=== PATIENT | female | born 2000 | race Caucasian/White ===

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

== ENCOUNTER → 2019-09-08 11:29 | Outpatient (CLI) | payer MEDICAID, SELFPAY ==
[2019-09-08 14:06] LABS: hCG Titer Quant., Serum < 1 mIU/mL (1-3)
[2019-09-08 14:18] LABS: Progesterone Level 0.74 ng/mL (See Comment)
== END ==
PROVIDERS: Referring Provider Obstetrics & Gynecology; Visit Provider Obstetrics & Gynecology
DX: Z30.014 Encounter for initial prescription of intrauterine contraceptive device (principal)
CPT/HCPCS: 36415; 84144; 84702

== ENCOUNTER → 2019-09-10 15:27 | Outpatient (CLI) | payer MEDICAID, SELFPAY ==
[2019-09-10 20:22] LABS: Chlamydia Trachomatis by PCR Negative (Negative); Neisserai gonorrhoeae by PCR Negative (Negative); Probe Check PASS; Sample Adequacy Control PASS; Specimen Processing Control PASS
== END ==
PROVIDERS: Visit Provider Advanced Practice Midwife
DX: Z11.3 Encounter for screening for infections with a predominantly sexual mode of transmission (principal)
CPT/HCPCS: 87491; 87591

== ENCOUNTER → 2020-02-15 16:02 | Outpatient (CLI) | payer MEDICAID, SELFPAY ==
[2020-02-15 17:12] LABS: Absolute Lymphocyte Count 1.44 X10^3/uL (0.83-4.51); Absolute Neutrophil Count 6.2 X10^3/uL (2.0-7.7); Basophil# 0.03 X10^3/uL; Basophil% 0.4 % (0-1); Eosinophil# 0.28 X10^3/uL; Eosinophils% 3.3 % (0-5); Hematocrit 38.9 % (37-47); Lymphocyte # 1.44 X10^3/ul (4.0); Lymphocyte % 17.1 % (19-41); Mean Corp Hgb Conc 33.4 g/dL (32-36); Mean Corpuscular Hgb 30.2 pg (27.0-32.0); Mean Corpuscular Volume 90.3 fL (81-99); Monocyte# 0.46 X10^3/uL; Monocyte% 5.5 % (0-10); NRBC Flagged by Analyzer 0 % (0-5); Neutrophil % 73.3 % (47-70); Platelet Count 211 K/mm3 (150-450); RBC Distribution Width CV 12.8 % (11.6-14.6); RBC Distribution Width SD 41.8 fl (35.1-43.9); Red Blood Count 4.31 M/mm3 (4.2-5.4); White Blood Count 8.4 K/mm3 (4.4-11.0)
[2020-02-15 17:14] LABS: Color, Urine Yellow (Yellow); Glucose, Dipstick Normal (Normal); Ketone-Dipstick 15 mg/dl (Negative); Leukocyte Esterase-Dipstick 500 /ul (Negative); Nitrite-Dipstick Negative (Negative); Occult Blood-Urine Negative /ul (Negative); Protein-Dipstick 30 mg/dl (Negative); Urine Bilirubin Dipstick Negative (Negative); Urine Clarity Sl. Cloudy (Clear); Urine Urobilinogen 1 mg/dl (Normal); Urine pH 6.5 (5.0 - 8.0)
[2020-02-15 17:36] LABS: Amphetamine Urine VISTA NEGATIVE (<1000 ng/mL); Barbiturate Urine VISTA NEGATIVE (< 200 ng/mL); Benzodiazepine Urine VISTA NEGATIVE (< 200 ng/mL); Cocaine Urine VISTA NEGATIVE (< 300 ng/mL); Ecstacy Urine VISTA NEGATIVE (< 500 ng/mL); Methadone Urine VISTA NEGATIVE (< 300 ng/mL); PCP Urine VISTA NEGATIVE (< 25 ng/mL); THC Urine VISTA NEGATIVE (< 50 ng/mL); Vista UDS pH Range 7
[2020-02-15 18:50] LABS: Thyroid Stim Hormone (TSH) 2.43 uIU/mL (0.358-3.74)
[2020-02-15 19:22] LABS: Chlamydia Trachomatis by PCR Negative (Negative); Neisserai gonorrhoeae by PCR Negative (Negative); Probe Check PASS; Sample Adequacy Control PASS; Specimen Processing Control PASS
[2020-02-16 10:34] LABS: HIV - WCH Non-Reactive (Nonreactive); Hepatitis B Surface Antigen Non-Reactive (Nonreactive); Hepatitis C Antibody Non-Reactive (Nonreactive); Rubella IgG 75.4 IU/mL
[2020-02-16 21:57] LABS: Prenatal RPR NONREACTIVE (NONREACTIVE)
== END ==
PROVIDERS: Visit Provider Obstetrics & Gynecology
DX: Z34.82 Encounter for supervision of other normal pregnancy, second trimester (principal)
CPT/HCPCS: 36415; 80307; 81002; 84443; 85025; 86703; 86762; 86803; 87340; 87491; 87591

== ENCOUNTER → 2020-04-12 10:24 | Outpatient (CLI) | payer MEDICAID, SELFPAY ==
[2020-04-12 11:08] LABS: Hematocrit 36.6 % (37-47); Hemoglobin 12.1 g/dL (12.0-15.0); Mean Corp Hgb Conc 33.1 g/dL (32-36); Mean Corpuscular Hgb 30.3 pg (27.0-32.0); Mean Corpuscular Volume 91.7 fL (81-99); Mean Platelet Vol. 10.3 fl (6.2-12.0); Platelet Count 197 K/mm3 (150-450); RBC Distribution Width CV 12.8 % (11.6-14.6); RBC Distribution Width SD 42.2 fl (35.1-43.9); Red Blood Count 3.99 M/mm3 (4.2-5.4); White Blood Count 8.8 K/mm3 (4.4-11.0)
[2020-04-12 11:20] LABS: Glucose Challenge Gest 1H 50g 111 mg/dL (70-140)
== END ==
PROVIDERS: Visit Provider Obstetrics & Gynecology
DX: Z34.82 Encounter for supervision of other normal pregnancy, second trimester (principal)
CPT/HCPCS: 36415; 82950; 85027

== ENCOUNTER → 2020-06-14 | Outpatient (CLI) | payer MEDICAID, SELFPAY | END | disposition home or self-care (01) | LOC: LABSPEC 16:36 | PROVIDERS: Visit Provider Obstetrics & Gynecology | DX: Z36.85 Encounter for antenatal screening for Streptococcus B (principal) | CPT/HCPCS: 87081 ==

== ENCOUNTER 2020-07-05 18:25 | Inpatient (IN) | payer MEDICAID, SELFPAY ==
[2020-07-05 19:08] VITALS: BMI 36.3
[2020-07-05 19:27] VITALS: BP 124/66; PULSE 99
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
[2020-07-05] MEDS: Lactated Ringers 1,000 ML 50 ML IV (20:00)
[2020-07-05 20:24] VITALS: BP 109/62; PULSE 90; TEMP 36.8
[2020-07-05 20:28] LABS: Absolute Lymphocyte Count 1.64 X10^3/uL (0.83-4.51); Absolute Neutrophil Count 7.2 X10^3/uL (2.0-7.7); Basophil# 0.02 X10^3/uL; Basophil% 0.2 % (0-1); Eosinophil# 0.16 X10^3/uL; Eosinophils% 1.6 % (0-5); Hematocrit 37.4 % (37-47); Hemoglobin 12.2 g/dL (12.0-15.0); Lymphocyte # 1.64 X10^3/ul (4.0); Lymphocyte % 16.7 % (19-41); Mean Corp Hgb Conc 32.6 g/dL (32-36); Mean Corpuscular Hgb 29.3 pg (27.0-32.0); Mean Corpuscular Volume 89.7 fL (81-99); Monocyte# 0.72 X10^3/uL; Monocyte% 7.3 % (0-10); NRBC Flagged by Analyzer 0 % (0-5); Neutrophil # 7.22 X10^3/uL (2.7-7.7); Neutrophil % 73.7 % (47-70); Platelet Count 187 K/mm3 (150-450); RBC Distribution Width CV 13.8 % (11.6-14.6); RBC Distribution Width SD 45.1 fl (35.1-43.9); Red Blood Count 4.17 M/mm3 (4.2-5.4); White Blood Count 9.8 K/mm3 (4.4-11.0)
[2020-07-05] MEDS: miSOPROStol 25 MCG TABLET PO (20:30)
[2020-07-05] MEDS: Lactated Ringers 500 ML 999 ML IV (23:53)
[2020-07-06] VITALS (74 sets, daily range): BP systolic 80–125; BP diastolic 49–76; PULSE 64–102; RESP 14–16; TEMP 36.5–37.3; O2SAT 95–98
[2020-07-06] MEDS: fentaNYL-bupivacaine (epidural) 100 ML BAG EPIDURAL ×2 (01:04→06:19)
[2020-07-06] MEDS: Lactated Ringers 1,000 ML 200 ML IV (04:34)
[2020-07-06] MEDS: Oxytocin 30 units/NS 500 ml 30 UNITS/500 ML IV.SOLN 334 UNITS IV (09:09)
--- NOTE | 2020-07-06 09:29 | PCM.OPRPT ---
Problem List (1) (spontaneous vaginal delivery) Status: Acute Vaginal Delivery Maternal Presentation: Elective Induction Method of Induction: Cytotec Amniotic Membrane Rupture Type: Spontaneous Rupture of Membrane time: 07/06/20 0848h Amniotic Fluid Description: Lightly stained meconium Final SALLIE: 07/10/20 Gestational age: 39 Weeks and 3 Days doctor who attended delivery (if requested by OB): Nadine Brewer Date of Procedure: 07/06/20 Pre-Operative Diagnosis: 39w3d gestation Post-Operative Diagnosis: 39w3d gestation Surgery/ Procedure Performed: Spontaneous Vaginal Delivery Anesthesiologist: Jaylen Barton Type of Anesthesia: Epidural Description of Procedure: Patient was FD/+3 on my arrival. She pushed to deliver a vigorous male infant over and intact perineum. Infant was placed on the maternal abdomen and further attended by nursery personnel. The cord was doubly clamped, then it was cut by the adoptive mother. The was passed to the adoptive mother for skin to skin. The placenta delivered spontaneously and appeared intact on inspection. Fundus was firm at umbilicus. Sponge counts correct x 2. Presentation: Vertex Placental Delivery Description: Spontaneous Placenta Disposition: [facility] Cord Vessel Description: 3 Vessels Nuchal Cord Compression: Without compression Cord Entanglement: None Drain: Cleaning to straight drain Estimated Blood Loss: 150 ml Infant A gender: Male (1 minute): 8 (5 minute): 9 Episiotomy Description: None Laceration: None Medications given after delivery: IV Pitocin Complications: None
--- NOTE | 2020-07-06 14:00 | CASEMGMT ---
Social Work Labor and Delivery Unit Reason for intervention: Adoption planning for Summary: This sba underwriter is aware patient/mother of baby (MOB) plan for option of . This sba underwriter met with MOB on 06/30/2020 to review the adoptive checklist. Informed at that time MOB is working with [employer] adoption agency. Also present for part of the meeting with MOB was the perspective adoptive mother. MOB and the adoptive mother reports to know each other's first and last names and are open to information being known. Noted that infant was delivered today. This sba underwriter received message from Kae Cruz at [employer] agency ([phone]) touching base and discussing timeframe of when the permanent surrender paperwork can be signed. The attorney law clerk and adoption agency staff are unavailable on Friday, so the soonest surrender can be done is on 07/10/2020. Spoke with nursing staff, and the MOB boyfriend is present as support person. The adoptive parents are also present on the unit and have their own room to take care of the baby, which has been the MOB wish for her adoption plan. Plan: Plan to meet with MOB on 07/07/2020 further assessment and confirmation of desire to follow through with adoption planning. -DARLENE Glasgow, SVETLANA *Information documented in this note generated via [facility] system*
[2020-07-06] MEDS: buPROPion (XL) 150 MG TABLET.XL PO (15:58)
[2020-07-06] MEDS: Prenatal Vits Tablet 1 TABLET PO (15:58)
[2020-07-06] MEDS: Ibuprofen 600 MG Tablet PO (19:54)
[2020-07-07 03:54] VITALS: BP 125/66; PULSE 83; RESP 16; TEMP 36.6
[2020-07-07 08:30] VITALS: BP 121/69; PULSE 93; RESP 18; TEMP 36.8
--- NOTE | 2020-07-07 08:30 | PCM.PN.OB ---
Patient Problems: Active and Suspected Problems (spontaneous vaginal delivery) (Acute) Subjective: No issues overnight. Reports she finally slept well. She is sore, but pain is minimal. OOB, ambulating and voiding without difficulty. Denies heavy lochia. Objective: AVSS - Physical Exam Vitals/I&O's: Vital Signs Temp Pulse Resp BP Pulse Ox 97.8 F 83 16 125/66 H 98 07/07/20 03:54 07/07/20 03:54 07/07/20 03:54 07/07/20 03:54 07/06/20 15:54 Oxygen Delivery Method Room Air Weight: 78.925 kg Body Mass Index (BMI) 36.3 Intake and Output for Last 24 Hours 07/05/20 07/06/20 07/07/20 23:59 23:59 23:59 Intake Total 194.17 / 194.17 2748.45 / 2748.45 Output Total 1450 / 1450 Balance 194.17 / 194.17 1298.45 / 1298.45 General: Alert, Oriented x3, Cooperative, No apparent distress HEENT: Atraumatic, Normocephalic Lungs: Clear to auscultation, Normal air movement Cardiovascular: Regular rate, Regular Rhythm, Normal S1, Normal S2 Abdomen: Soft, Non Tender, Non-Distended, - - Fundus firm and nontender Extremities: No edema, No Calf Tenderness Neurological: Neuro grossly intact Psych/Mental Status: Normal Affect, Appropriate, Alert and oriented to time, place, person, mood and affect Microbiology Past 72 Hours 07/05/20 20:10 Mucosa - Nose - Final Current Medications Acetaminophen (Acetaminophen 325 Mg Tablet) 325 - 650 mg PO Q4H PRN PRN PRN Reason: FEVER ABOVE 100.4F. Acetaminophen (Acetaminophen 500 Mg Tablet) 1,000 mg PO Q8H PRN PRN PRN Reason: Pain Score 1-3 Albuterol Sulfate (Albuterol 2.5 Mg/3 Ml Vial.Neb.) 2.5 mg INHALATION Q4H PRN PRN Reason: SOB/WHEEZING Albuterol Sulfate (Albuterol 2.5 Mg/3 Ml Vial.Neb.) 2.5 mg INHALATION Q6HWA.RT MARQUEZ Bisacodyl (Bisacodyl 10 Mg Suppository) 10 mg RECTAL UD PRN PRN Reason: If no BM Budesonide (Budesonide Respules 0.5 Mg/2 Ml Ampul.Neb.) 0.5 mg INHALATION Q12H.RT MARQUEZ Bupropion HCl (Bupropion (Xl) 150 Mg Tablet.Xl) 150 mg PO DAILY [facility] Last Admin: 07/06/20 15:58 Dose: 150 mg Documented by: Dibucaine (Dibucaine 30 Gm Tube) 1 applic TOPICAL TID PRN PRN; Protocol PRN Reason: Discomfort Hydrocortisone (Hydrocortisone 2.5% Crm) 1 applic TOPICAL TID PRN PRN; Protocol PRN Reason: Discomfort Ibuprofen (Ibuprofen 600 Mg Tablet) 600 mg PO Q6H PRN PRN PRN Reason: Pain Score 1-3 Last Admin: 07/06/20 19:54 Dose: 600 mg Documented by: Methylergonovine Maleate (Methylergonovine 0.2 Mg/Ml Ampul) 0.2 mg IM X1 PRN PRN Reason: Excess bleeding/uterine atony Ondansetron HCl (Ondansetron 4 Mg/2 Ml Vial) 4 mg IV Q4H PRN PRN PRN Reason: NAUSEA Multivit/Folic Acid/Iron ( Vits Tablet) 1 tablet PO DAILY@1200 MARQUEZ Last Admin: 07/06/20 15:58 Dose: 1 tablet Documented by: Senna/Docusate Sodium (Senna/Docusate Sodium 1 Tablet) 1 - 2 tablet PO DAILY PRN PRN PRN Reason: Constipation Simethicone (Simethicone 80 Mg Tablet) 80 mg PO PCHS PRN PRN Reason: Indigestion/Stomach pain Sodium Chloride (0.9% Saline Lock 10 Ml Syringe) 5 - 15 ml IV UD PRN PRN Reason: SALINE FLUSH Medical Necessity - Tobacco Use Smoking Status: Never smoker Assessment/Plan All Active Problems 40 weeks gestation of (Acute) (spontaneous vaginal delivery) (Acute) Encounter for insertion of intrauterine contraceptive device (Acute) 19yo PPD#1 s/p doing well. -Rh positive -Routine care - released to adoption -Plan for d/c home today
--- NOTE | 2020-07-07 08:35 | DCINST_ITS ---
Discharge Diet: No Restrictions Discharge Activity: Return to Normal Activity May resume sexual activity in: 6 weeks Lifting Restrictions: 20 lb Additional Instructions: If you experience any of the following, contact your healthcare provider. * Bleeding that soaks a pad every hour for 2 hours * Fever 100.4 or higher * Unrelieved incision or abdominal pain * Swelling, redness, discharge or bleeding from your incision or episiotomy site * Your incision begins to separate * Problems urinating (including inability to urinate or burning while urinating). * Visual changes * Severe headache * Flu-like symptoms * Pain or redness in one of both of your breasts * Pain, warmth, tenderness or swelling in your legs, especially the calf area * Frequent nausea and vomiting * Symptoms of depression or anxiety If you experience any of the following, call 911 or go to the nearest Emergency Room. * Chest pain * Problems breathing * Seizure activity * Partial or complete paralysis of a body part, slurred speech, weakness or drooping of the face, or a sudden inability to walk or hold your balance Allergies/Adverse Reactions: Allergies No Known Allergies Allergy (Verified 07/05/18 23:02) Medications to take at Discharge Budesonide/Formoterol 160/4.5 [Symbicort 160/4.5 Mcg Inhaler (SP)] 2 puff IH DAILY 04/22/18 Vit No.130/Iron/Folic [ Tablet] 1 each PO DAILY 05/09/18 Albuterol Inhaler [Ventolin Hfa] 1 puff PRN PRN 07/05/18 Bupropion HCl [Wellbutrin Xl] 150 mg PO DAILY 07/05/20 Ibuprofen 600 mg PO TID PRN #30 tab 07/07/20 The following prescriptions were given: Ibuprofen 600 mg PO TID PRN #30 tab PRN Reason: pain -06/10 Transmission Status: Pending to [id number] Please Follow Up With: Milka - Mood follow up When: 2-3 weeks Primary Care Physician: Care Physician,No Primary [Primary Care Provider] - Test Results: Test results from this visit will be discussed in further detail at your follow- up appointment, if applicable.
[2020-07-07] MEDS: Ibuprofen 600 MG Tablet PO (10:00)
[2020-07-07 10:01] VITALS: BP 121/69; PULSE 93
[2020-07-07] MEDS: buPROPion (XL) 150 MG TABLET.XL PO (10:01)
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
[2020-07-07] MEDS: Prenatal Vits Tablet 1 TABLET PO (12:48)
[2020-07-07 13:29] VITALS: BP 115/61; PULSE 92
[2020-07-07 13:31] VITALS: BP 115/61; PULSE 92; RESP 18; TEMP 36.4
== END 2020-07-07 13:57 | disposition home or self-care (01) | DRG 560 ==
PROVIDERS: Admitting Provider Obstetrics & Gynecology; Referring Provider Obstetrics & Gynecology; Visit Provider Obstetrics & Gynecology
DX: O77.0 Labor and delivery complicated by meconium in amniotic fluid (principal); Z37.0 Single live birth; Z3A.39 39 weeks gestation of pregnancy; J45.909 Unspecified asthma, uncomplicated; O99.52 Diseases of the respiratory system complicating childbirth; O99.344 Other mental disorders complicating childbirth; F32.9 Major depressive disorder, single episode, unspecified; F40.10 Social phobia, unspecified; Z62.810 Personal history of physical and sexual abuse in childhood; Z87.891 Personal history of nicotine dependence
CPT/HCPCS: 59025; 59050; 85025; 86850; 86900; 86901; 87426; 99218; J7120; G0378

== ENCOUNTER 2020-07-26 01:09 | Emergency (ER) | payer MEDICAID, SELFPAY ==
[2020-07-26 01:11] VITALS: BP 104/72; PULSE 87; RESP 18; TEMP 36.1; O2SAT 100; BMI 31.8
--- NOTE | 2020-07-26 01:16 | RAD_ITS ---
STUDY: X-RAY - ACUTE ABDOMINAL SERIES REASON FOR EXAM: Female, 19 years old. NON SPECIFIC ABD PAIN X 2+ DAYS TECHNIQUE: Single view of the chest. Supine, view(s) of the abdomen were obtained. COMPARISON: None. FINDINGS: The lungs are clear and expanded. Normal size heart. Normal mediastinum and starr. Normal visualized pulmonary arteries. Normal visualized aortic arch and descending thoracic aorta. There is an abundance of fecal material throughout the colon. The soft tissue structures of the abdomen and pelvis are unremarkable. Normal visualized osseous structures. RAD/Acute Abdomen Inc Chest IMPRESSION: Lungs are clear. Abundant constipation Electronically Signed: Akash Russell DO at 2:10 EST Tel , Service support ,
--- NOTE | 2020-07-26 01:20 | ED.VISSUMM ---
- ER Visit Summary Date of Service: 07/26/20 Chief Complaint: Abdominal pain History of Present Illness: The patient is a 19 F who presents with abdominal pain. This pain has been intermittent for the past 3 days. She describes as sharp as well as a bubble in her stomach after eating. Nothing seems to make it better or worse. She denies nausea, vomiting, diarrhea, constipation, dysuria or hematuria. She had a vaginal delivery on July 06. She has been having some intermittent bleeding ever since then. She denies fevers. No abdominal surgeries in the past. She currently is denying any pain at this time. Physical Examination: Vital signs reviewed. HEENT exam unremarkable. Heart is regular rate and rhythm without murmurs. Lungs are clear to auscultation. Abdomen is soft and nontender. exam is deferred. Extremities reveal no edema. Skin exam normal. Neurologic exam normal. Test Results: Laboratory studies are unremarkable aside for chloride of 109, alkaline phosphatase 153. hCG negative. Acute abdominal series interpreted by myself and radiology shows constipation Emergency Department Course and Treatment: Patient has constipation on her imaging studies. Laboratory studies and urinalysis are unremarkable. I recommend she follow-up with her CURING ROOM SUPERVISOR regarding this intermittent vaginal bleeding. She will take [id number] stool softeners for her constipation Treatment Plan: [] Disposition: Discharge Impression: Abdominal pain, constipation This note was generated with [employer] dictation software. It may contain incorrect words, spelling, and punctuation that were not noted in review of the chart prior to signing ED Disposition - Plan for ED Patient: Disposition: Home or Assisted Living Instructions: ED Abdominal Pain Unkn Cause Fem Referrals: Care Physician,No Primary [Primary Care Provider] -
[2020-07-26 01:27] LABS: Absolute Lymphocyte Count 2.04 X10^3/uL (0.83-4.51); Absolute Neutrophil Count 3.4 X10^3/uL (2.0-7.7); Basophil# 0.03 X10^3/uL; Basophil% 0.5 % (0-1); Eosinophil# 0.34 X10^3/uL; Eosinophils% 5.4 % (0-5); Hematocrit 41.4 % (37-47); Hemoglobin 13.4 g/dL (12.0-15.0); Lymphocyte # 2.04 X10^3/ul (4.0); Lymphocyte % 32.6 % (19-41); Mean Corp Hgb Conc 32.4 g/dL (32-36); Mean Corpuscular Hgb 29.1 pg (27.0-32.0); Mean Corpuscular Volume 89.8 fL (81-99); Mean Platelet Vol. 9.9 fl (6.2-12.0); Monocyte# 0.46 X10^3/uL; Monocyte% 7.3 % (0-10); NRBC Flagged by Analyzer 0 % (0-5); Neutrophil # 3.36 X10^3/uL (2.7-7.7); Neutrophil % 53.7 % (47-70); Platelet Count 265 K/mm3 (150-450); RBC Distribution Width CV 13.1 % (11.6-14.6); Red Blood Count 4.61 M/mm3 (4.2-5.4); White Blood Count 6.3 K/mm3 (4.4-11.0)
[2020-07-26 01:28] LABS: Bacteria 0 SEEN /hpf (None Seen); Mucous, Urine 0 SEEN /hpf (<or=2+)
[2020-07-26 01:30] LABS: Color, Urine Yellow (Yellow); Glucose, Dipstick Normal (Normal); Ketone-Dipstick Negative (Negative); Leukocyte Esterase-Dipstick 100 /ul (Negative); Nitrite-Dipstick Negative (Negative); Occult Blood-Urine 250 /ul (Negative); Protein-Dipstick Negative (Negative); Urine Bilirubin Dipstick Negative (Negative); Urine Clarity Clear (Clear); Urine Urobilinogen Normal (Normal)
[2020-07-26 01:32] LABS: Internal QC Validated? YES +Cl - CLEAR BKGD; Pregnancy, Urine Negative Negative
[2020-07-26 01:37] LABS: Red Blood Cells-Urine 0-5 SEEN /hpf (0-5); Squamous Epithelial Cells - UA 0-5 SEEN /hpf (5-10); White Blood Cells 0-5 SEEN /hpf (0-5)
[2020-07-26 01:44] LABS: ALB/GLOB Ratio 0.9 RATIO (0.9-2.4); AST(SGOT) 15 U/L (15-37); Alanine Aminotransfer ALT/SGPT 30 U/L (13-56); Albumin, Serum 3.4 g/dL (3.2-5.0); Alkaline Phosphatase 153 U/L (45-117); Anion Gap 6 (5-15); BUN 7 mg/dL (7-18); BUN/Creat Ratio 11.4 RATIO (10-20); Calcium,Total 8.9 mg/dL (8.5-10.1); Chloride 109 mmol/L (98-107); Creatinine, Serum 0.61 mg/dL (0.55-1.02); EST Glomerular Filtration Rate 131 mL/min (>60); Est Glom Filt Rate - Afr Amer 159 mL/min (>60); Estimated Creatinine Clearance 105.67 ml/min; Globulin 3.8 g/dL (2.2-4.2); Glucose 90 mg/dL (74-106); Potassium 3.7 mmol/L (3.5-5.1); Protein, Total 7.2 g/dL (6.4-8.2); Sodium Level 142 mmol/L (136-145)
[2020-07-26 02:23] VITALS: RESP 16
== END 2020-07-26 02:23 | disposition home or self-care (01) ==
PROVIDERS: Emergency Provider Emergency Medicine
DX: K59.00 Constipation, unspecified (principal)
CPT/HCPCS: 74022; 80053; 81001; 81025; 85025; 99284; A4216

== ENCOUNTER → 2020-08-21 | Outpatient (CLI) | payer MEDICAID, SELFPAY ==
[2020-07-26 01:11] VITALS: BMI 31.8
[2020-08-24 03:07] LABS: Chlamydia By Nucleic Acid AMP Negative (Negative)
[2020-08-24 08:28] LABS: Gonococcus By Nucleic Acid AMP Negative (Negative)
== END | disposition home or self-care (01) ==
LOC: LABSPEC 15:54
PROVIDERS: Visit Provider Obstetrics & Gynecology
DX: Z11.3 Encounter for screening for infections with a predominantly sexual mode of transmission (principal)
CPT/HCPCS: 87491; 87591

== ENCOUNTER 2021-04-10 17:08 | Emergency (ER) | payer MEDICAID, SELFPAY ==
[2021-04-10 17:09] VITALS: BP 122/85; PULSE 67; RESP 14; TEMP 36.3; O2SAT 98; BMI 30.9
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
[2021-04-10 21:15] VITALS: BP 120/74; PULSE 82; RESP 14; O2SAT 98
== END 2021-04-10 21:16 | disposition home or self-care (01) ==
PROVIDERS: Emergency Provider Emergency Medicine
DX: S09.90XA Unspecified injury of head, initial encounter (principal); W51.XXXA Accidental striking against or bumped into by another person, initial encounter; Y93.9 Activity, unspecified; Y92.9 Unspecified place or not applicable
CPT/HCPCS: 99282

== ENCOUNTER 2021-07-09 13:38 | Emergency (ER) | payer MEDICAID, SELFPAY ==
[2021-07-09 13:39] VITALS: BP 109/79; PULSE 113; RESP 22; TEMP 36.7; O2SAT 94; BMI 23.9
[2021-07-09 15:56] VITALS: O2SAT 97
--- NOTE | 2021-07-09 15:56 | ED.VIS.DYS ---
HPI History of Present Illness Chief Complaint: Shortness of Breath Informant: patient Onset/Context/Timing Onset: Yesterday Context: sudden Timing: Continuous Quality: Positive for Wheezing Worsened by: Nothing Relieved by: Nothing Associated Symptoms cough; Negative for rhinorrhea, ear pain, fever, sore throat, chills, clear sputum, white sputum, yellow sputum or green sputum Chest Pain: Positive for Dull Narrative Narrative: Patient presents with shortness of breath that has been getting worse since yesterday. Patient states it began rather suddenly last night. Patient states it has been constant. Patient takes nothing seems to make it better nothing seems to make it worse. Patient admits to a cough but denies any sputum production. Patient admits to some chest pain but states is in her posterior chest around her back. Patient denies any fevers or chills. Patient denies any rhinorrhea or sore throat. [facility] Medical History (Updated 07/09/21 @ 17:[address] Gavin Humphreys DO) Asthma Home Medications albuterol sulfate [Ventolin HFA] 1 - 2 puff INHALATION Q4H PRN PRN #1 inhaler 07/09/21 [Rx Last Taken Unknown] azithromycin 250 mg PO DAILY #4 tablet 07/09/21 [Rx Last Taken Unknown] Allergy/AdvReac Type Severity Reaction Status Date / Time No Known Allergies Allergy Verified 07/09/21 13:41 Social History Smoking Status: Never smoker ROS [facility] ED Constitutional Constitutional ED: Denies chills or fever(s) Eyes Eyes: Denies blurry vision or change in vision ENT ENT ED: Denies rhinorrhea or sore throat Cardiovascular Cardiovascular: Reports chest pain; Denies palpitations Respiratory/Chest Respiratory/Chest: Reports cough and dyspnea Gastrointestinal Gastrointestinal: Denies nausea or vomiting Genitourinary Genitourinary ED: Denies dysuria or hematuria Musculoskeletal Musculoskeletal: Reports back pain; Denies neck pain Integumentary Denies abscess or rash Neurologic Neurologic: Denies headache(s) or weakness Allergic/Immunologic Allergic/Immunologic ED: Denies mouth swelling or urticaria EXAM Physical Exam Const Vital Signs: 07/09/21 13:39 07/09/21 15:56 07/09/21 16:04 Temperature 98.1 F Temperature Source Temporal Pulse Rate 113 H 110 H Respiratory Rate 22 H 20 H Respiratory Effort Normal Non-Labored Short of Breath Respiratory Depth Normal Respiratory Pattern Normal Blood Pressure 109/79 Blood Pressure Mean 89 Pulse Ox 94 94 Oxygen Delivery Method Room Air Room Air Room Air 07/09/21 17:54 Temperature Temperature Source Pulse Rate 78 Respiratory Rate 16 Respiratory Effort Respiratory Depth Respiratory Pattern Blood Pressure 128/77 H Blood Pressure Mean Pulse Ox 97 Oxygen Delivery Method Positive well nourished and well developed General Appearance ED: well developed HEENT Reports moist mucous membranes Neck supple and no JVD Resp normal respiratory effort Auscultation: wheezes expiratory wheezes and throughout Cardio regular rate, regular rhythm and no murmurs GI normal to inspection, nondistended, normoactive bowel sounds and non-tender Palpation: soft Extremity normal to inspection General Extremety ED: Negative for edema or tenderness General Extremity: Negative for edema Neuro oriented x3, CN's II-XII intact bilaterally and no sensory deficits noted Sensorium / Orientation: alert Motor Exam: strength 5/5 throughout Psych mental status grossly normal Skin no rashes or lesions noted MDM MDM MDM Narrative Medical decision making narrative: Patient was given a DuoNeb aerosol here. Portable chest x-ray was obtained. There is 1 view. On my interpretation, there is a questionable right lower lobe infiltrate. Bony thorax is normal. There is no cardiomegaly. Radiologist also interpreted the x-ray and agrees. COVID-19 rapid antigen was obtained and was negative. Patient was feeling better on reevaluation. Patient was given prescription for Zithromax. Patient was also given a prescription for an albuterol inhaler. Patient was instructed to follow-up with her primary care physician in 5 to 7 days. Patient understood and was agreeable with the plan. All questions were answered. Radiography Chest X-Ray - ED: 1 View, Read by ED Physician, Read by Radiologist and Right Infiltrate Diagnostic Testing: Clinical Impression(s) from Imaging Studies Chest X-Ray 07/09/21 16:20 IMPRESSION: Suspect early or resolving right lower lobe pneumonia. Electronically Signed: Michael Smith MD at 16:40 EST Tel , Service support , Discharge Plan Triage Chief Complaint: Shortness of Breath ED Provider: Gavin Humphreys Dx/Rx/DC Orders Clinical Impression: Pneumonia Instructions: ED Pneumonia (Adult) Prescriptions: New azithromycin [azithromycin] 250 MG tablet 250 mg PO DAILY Qty: 4 RF: 0 albuterol sulfate [Ventolin HFA] 1 INHALER inhaler 1 - 2 puff inhalation Q4H PRN PRN (Reason: Wheezing) Qty: 1 RF: 0 Primary Care Provider: Care Physician,No Primary Referrals: Lesly Stephenson MD [STAFF PHYSICIAN] - 3-5 Days Care Physician,No Primary [Primary Care Provider] - Disposition Disposition: Home, Self Care Discharge Date/Time: 07/09/21 17:54
[2021-07-09] MEDS: Ipratropium/Albuterol Sulfate 3 ML AMPUL.NEB INHALATION (16:02)
[2021-07-09 16:04] VITALS: PULSE 110; RESP 20; O2SAT 94
--- NOTE | 2021-07-09 16:20 | RAD_ITS ---
STUDY: X-RAY CHEST REASON FOR EXAM: Female, 20 years old. Dyspnea TECHNIQUE: Single AP portable view of the chest. COMPARISON: 07/26/2020 FINDINGS: Faint alveolar opacity in the lower right lung consistent with right lower lobe pneumonia. Azygous fissure consistent with an azygous lobe which is a normal variant. Normal size heart. Normal mediastinum and starr. Normal visualized pulmonary arteries. Normal visualized aortic arch and descending thoracic aorta. Normal visualized thoracic spine. Normal visualized ribs, clavicles, and shoulders. There is no demonstrated abnormality of the visualized soft tissue structures of the upper abdomen. RAD/Chest 1 View (Portable) IMPRESSION: Suspect early or resolving right lower lobe pneumonia. Electronically Signed: Michael Smith MD at 16:40 EST Tel , Service support ,
[2021-07-09] MEDS: Azithromycin 250 MG Tablet 500 MG PO (17:52)
[2021-07-09 17:54] VITALS: BP 128/77; PULSE 78; RESP 16; O2SAT 97
== END 2021-07-09 17:54 | disposition home or self-care (01) ==
PROVIDERS: Emergency Provider Emergency Medicine
DX: J18.9 Pneumonia, unspecified organism (principal); J45.909 Unspecified asthma, uncomplicated
CPT/HCPCS: 71045; 87426; 94640; 99283

== ENCOUNTER 2021-07-13 12:44 | Emergency (ER) | payer MEDICAID, SELFPAY ==
[2021-07-13] VITALS (8 sets, daily range): BP systolic 97–107; BP diastolic 45–70; PULSE 98–126; RESP 18–37; TEMP 37.1–38.1; O2SAT 87–98; BMI 25.4
--- NOTE | 2021-07-13 13:09 | EKG12_ITS ---
Test Reason : ASTHMA Blood Pressure : / mmHG Vent. Rate : 123 BPM Atrial Rate : 123 BPM P-R Int : 146 ms QRS Dur : 082 ms QT Int : 314 ms P-R-T Axes : 040 067 016 degrees QTc Int : 449 ms Sinus tachycardia Otherwise normal ECG Confirmed by BRITT VOSS, HARSHA ([id number]), production editor JERSON ANDREWS ([id number]) on 07/16/2021 11:24:17 AM Referred By: ASHLEY Confirmed By:HARSHA DE LA TORRE MD
--- NOTE | 2021-07-13 13:10 | CT_ITS ---
STUDY: CTA CHEST REASON FOR EXAM: Female, 20 years old. Shortness of breath. Recent pneumonia. RADIATION DOSAGE (If Supplied By Facility): CTDIvol = ( 12.45 ) mGy, DLP = ( 290.96 ) mGycm TECHNIQUE: The examination was performed with the intravenous administration of IV 75mL Isovue-370. Post-processing of the angiographic images was performed, with multiplanar reformation and 3D reconstruction. Individualized dose optimization techniques were used for this CT. COMPARISON: Comparison is made with prior chest radiograph dated 07/09/2021. FINDINGS: Normal enhancement of the main pulmonary artery and right and left pulmonary arteries. Normal enhancement of the bilateral peripheral pulmonary arteries. There is no demonstrated pulmonary embolism. Normal thoracic aorta and visualized great vessels. There is no demonstrated aortic dissection. Normal heart and pericardium. Normal mediastinum. Normal hilar regions. Normal visualized trachea and bronchi. The lungs are well expanded. Azygos lobe. Normal variant. Focal infiltrate in the anterior medial aspect of the left upper lobe. Focal infiltrate in the medial aspect of the right upper lobe. Focal infiltrate is also seen in the left lower lobe. Focal infiltrate is also seen in the lingular segment of the left upper lobe. There is a 3.5 mm noncalcified nodule in the anterior lateral aspect of the left lower lobe as seen on axial image #41. There is also evidence of a 4.9 mm noncalcified nodule in the posterior medial aspect of the lingular segment of the left upper lobe as seen on axial image #39. Normal pleura. Normal chest wall structures. Normal osseous structures. Small hiatal hernia. CT/CTA Chest W/WO Contrast IMPRESSION: Mild bilateral focal infiltrates as described. Noncalcified nodule seen in the left lower lobe. 12 month follow-up is recommended. No evidence of pulmonary embolus. Electronically Signed: Ej Frost MD at 14:50 EST , Service support ,
--- NOTE | 2021-07-13 13:12 | EX.ED.DYSGE1 ---
HPI History of Present Illness Chief Complaint: Asthma Informant: patient Onset/Context/Timing Onset: Yesterday Current Severity: Moderate Maximum Severity: Moderate Narrative Narrative: Patient presents with asthma exacerbation/shortness of breath and chest pain. Patient was seen here in the emergency room on the eighth with shortness of breath and wheezing. She was diagnosed with a right lower lobe infiltrate and discharged with albuterol inhaler and a Z-Piotr. Patient states last evening her shortness of breath worsened. She describes sharp pain in the sternal area that goes to her back. She reports mild cough but no noted fever at home. [facility] Medical History Asthma Home Medications albuterol sulfate [Ventolin HFA] 1 - 2 puff INHALATION Q4H PRN PRN #1 inhaler 07/09/21 [Rx Last Taken 07/12/21] albuterol sulfate [Ventolin HFA] 2 puff INHALATION Q4H PRN PRN #1 inhaler 07/13/21 [Rx Last Taken Unknown] levofloxacin 750 mg PO DAILY #4 tab 07/13/21 [Rx Last Taken Unknown] prednisone 20 mg PO DAILY 5 Days #10 tab 07/13/21 [Rx Last Taken Unknown] Allergy/AdvReac Type Severity Reaction Status Date / Time No Known Allergies Allergy Verified 07/09/21 13:41 Family History no significant family his Surgical History no surgical history Social History Smoking Status: Never smoker ROS ROS ED Constitutional Constitutional ED: Denies chills or fever(s) Eyes Eyes: Denies change in vision ENT ENT ED: Denies sore throat Cardiovascular Cardiovascular: Reports chest pain Respiratory/Chest Respiratory/Chest: Reports cough and dyspnea Gastrointestinal Gastrointestinal: Denies abdominal pain, diarrhea, nausea or vomiting Genitourinary Genitourinary ED: Denies dysuria Musculoskeletal Musculoskeletal: Reports back pain Integumentary Denies rash Neurologic Neurologic: Denies headache(s) or weakness Allergic/Immunologic Allergic/Immunologic ED: Denies urticaria EXAM Physical Exam Const Vital Signs: 07/13/21 12:45 07/13/21 12:50 07/13/21 12:56 Temperature 100.6 F H 100.6 F H Temperature Source Oral Oral Pulse Rate 124 H 126 H Respiratory Rate 37 H 34 H Respiratory Effort Short of Breath Labored Respiratory Pattern Tachypnea Blood Pressure 107/70 107/70 Blood Pressure Mean 82 82 Pulse Ox 92 91 Oxygen Delivery Method Room Air Room Air Room Air Oxygen Flow Rate (L/min) 07/13/21 13:03 07/13/21 13:04 07/13/21 13:30 Temperature Temperature Source Pulse Rate 123 H Respiratory Rate 30 H 30 H Respiratory Effort Respiratory Pattern Blood Pressure Blood Pressure Mean Pulse Ox 87 92 Oxygen Delivery Method Room Air Nasal Cannula Oxygen Flow Rate (L/min) 2 07/13/21 13:45 07/13/21 14:42 Temperature 98.7 F 98.7 F Temperature Source Oral Oral Pulse Rate 118 H 115 H Respiratory Rate 18 25 H Respiratory Effort Respiratory Pattern Blood Pressure 104/61 104/61 Blood Pressure Mean 75 75 Pulse Ox 98 94 Oxygen Delivery Method Nasal Cannula Nasal Cannula Oxygen Flow Rate (L/min) 2 2 Positive well nourished and well developed General Appearance ED: well developed HEENT Reports moist mucous membranes Eyes PERRL and EOMs intact bilaterally Neck supple Chest Wall inspection of chest normal and palpation of chest normal Resp Auscultation: diminished lung sounds Cardio Rate: tachycardic GI normal to inspection, nondistended, normoactive bowel sounds and non-tender Palpation: soft Extremity normal to inspection Neuro oriented x3 Sensorium / Orientation: alert Psych mental status grossly normal Skin no rashes or lesions noted MDM MDM MDM Narrative Medical decision making narrative: Patient given DuoNeb treatment followed by albuterol. IV Solu-Medrol given. Lab work, CTA chest, repeat Covid test ordered. Lab Data Attestation: I reviewed the patient's lab results. Labs: Laboratory Results - last 24 hr 07/13/21 07/13/21 07/13/21 13:27 13:27 13:27 WBC 8.0 RBC 4.45 Hgb 13.2 Hct 38.0 MCV 85.4 MCH 29.7 MCHC 34.7 RDW Std Deviation 43.8 RDW Coeff of Yamel 13.9 Plt Count 222 MPV 10.3 Immature Gran % (Auto) 0.200 Neut % (Auto) 71.3 H Lymph % (Auto) 15.0 L [place] % (Auto) 4.7 Eos % (Auto) 8.4 H Baso % (Auto) 0.4 Absolute Neuts (auto) 5.7 Absolute Lymphs (auto) 1.20 Nucleated RBC % 0 Sodium 132 L Potassium 3.5 Chloride 98 Carbon Dioxide 27.0 Anion Gap 7 BUN 5 L Creatinine 0.52 L Estim Creat Clear Calc 141.57 Est GFR (MDRD) Af Amer 192 Est GFR (MDRD) Non-Af 159 BUN/Creatinine Ratio 9.7 L Glucose 98 Calcium 9.0 Serum , Qual NEGATIVE Rapid Covid test negative. Radiography Diagnostic Testing: Clinical Impression(s) from Imaging Studies Chest CTA 07/13/21 13:10 IMPRESSION: Mild bilateral focal infiltrates as described. Noncalcified nodule seen in the left lower lobe. 12 month follow-up is recommended. No evidence of pulmonary embolus. Electronically Signed: Ej Frost MD at 14:50 EST , Service support , EKG Initial EKG: Attestation: I personally reviewed and interpreted this EKG as follows: Interpretation: Sinus Tachycardia (Sinus tachycardia at 123 with no acute ischemia.) Treatment and Re-Evaluation Comments:: On repeat evaluation patient significantly improved. Heart rate is 100. O2 sat 94 to 96% on room air. Lung sounds improved on auscultation. Lab work reviewed and largely unremarkable. Covid test is negative. CTA does reveal bilateral infiltrates. Patient be given prescription for albuterol inhaler, prednisone, Levaquin. Return instructions provided. Discharge Plan Triage Chief Complaint: Asthma ED Provider: Sera Lind Dx/Rx/DC Orders Clinical Impression: Pneumonia Instructions: ED Pneumonia (Adult) Prescriptions: New levofloxacin 750 mg tablet 750 mg PO DAILY Qty: 4 RF: 0 albuterol sulfate [Ventolin HFA] 1 INHALER inhaler 2 puff inhalation Q4H PRN PRN (Reason: Wheezing) Qty: 1 RF: 0 prednisone 10 mg tablet 20 mg PO DAILY 5 Days Qty: 10 RF: 0 No Action albuterol sulfate [Ventolin HFA] 1 INHALER inhaler 1 - 2 puff inhalation Q4H PRN PRN (Reason: Wheezing) Qty: 1 RF: 0 Primary Care Provider: Care Physician,No Primary Referrals: Yadi,Carol, DO [STAFF PHYSICIAN] - 1-2 Weeks Care Physician,No Primary [Primary Care Provider] - Disposition Disposition: Home, Self Care
[2021-07-13] MEDS: Ipratropium/Albuterol Sulfate 3 ML AMPUL.NEB INHALATION (13:25)
[2021-07-13] MEDS: MethylPREDNISolone 125 MG/2 ML Vial IV (13:26)
[2021-07-13] MEDS: Albuterol 2.5 MG/3 ML VIAL.NEB. INHALATION (13:26)
[2021-07-13] MEDS: Acetaminophen 500 MG Tablet 1000 MG PO (13:27)
[2021-07-13 13:44] LABS: Absolute Neutrophil Count 5.7 X10^3/uL (2.0-7.7); Basophil# 0.03 X10^3/uL; Basophil% 0.4 % (0-1); Eosinophil# 0.67 X10^3/uL; Eosinophils% 8.4 % (0-5); Hemoglobin 13.2 g/dL (12.0-15.0); Mean Corp Hgb Conc 34.7 g/dL (32-36); Mean Corpuscular Hgb 29.7 pg (27.0-32.0); Mean Corpuscular Volume 85.4 fL (81-99); Mean Platelet Vol. 10.3 fl (6.2-12.0); Monocyte# 0.38 X10^3/uL; Monocyte% 4.7 % (0-10); NRBC Flagged by Analyzer 0 % (0-5); Neutrophil # 5.71 X10^3/uL (2.7-7.7); Neutrophil % 71.3 % (47-70); Platelet Count 222 K/mm3 (150-450); RBC Distribution Width CV 13.9 % (11.6-14.6); RBC Distribution Width SD 43.8 fl (35.1-43.9); Red Blood Count 4.45 M/mm3 (4.2-5.4)
[2021-07-13 13:56] LABS: Internal QC Validated? YES +Cl - CLEAR BKGD; Pregnancy, Serum, hCG Quali. NEGATIVE Negative
[2021-07-13 14:00] LABS: Anion Gap 7 (5-15); BUN 5 mg/dL (7-18); BUN/Creat Ratio 9.7 RATIO (10-20); Chloride 98 mmol/L (98-107); Creatinine, Serum 0.52 mg/dL (0.55-1.02); EST Glomerular Filtration Rate 159 mL/min (>60); Est Glom Filt Rate - Afr Amer 192 mL/min (>60); Estimated Creatinine Clearance 141.57 ml/min; Glucose 98 mg/dL (74-106); Potassium 3.5 mmol/L (3.5-5.1); Sodium Level 132 mmol/L (136-145)
--- NOTE | 2021-07-13 15:32 | CM.ED ---
SW Note Referral Source: Case Find Referral Reason: No Primary Care Physician (PCP) SW reviewed chart and noted that patient has no PCP. SW provided patient with list of [facility] and [facility] Physician List for reference. SW also provided patient with handout ?Where to go When?. No other issues or concerns voiced at this time. SW remains available for any additional needs. Plan: Provided patient with PCP information Shakira COLON
[2021-07-13] MEDS: levoFLOXacin 750 MG Tablet PO (16:12)
--- NOTE | 2021-07-13 16:14 | ED.RN ---
THIS NURSE REVIEWED D/C INSTRUCTIONS WITH PT. PT VERBALIZED UNDERSTANDING OF INSTRUCTIONS. IV D/C. IV CATHETER INTACT. PT TOLERATED WELL. PT DENIES FURTHER NEEDS OR QUESTIONS AT THIS TIME.
== END 2021-07-13 16:16 | disposition home or self-care (01) ==
PROVIDERS: Emergency Provider Emergency Medicine
DX: J18.9 Pneumonia, unspecified organism (principal); J45.909 Unspecified asthma, uncomplicated
CPT/HCPCS: 71275; 80048; 84703; 85025; 87040; 87426; 93005; 94640; 96374; 99285; Q9967; A4216

== ENCOUNTER → 2022-01-04 | Outpatient (CLI) | payer MEDICAID, SELFPAY ==
[2022-01-04 15:52] LABS: Color, Urine Yellow (Yellow); Glucose, Dipstick Normal (Normal); Ketone-Dipstick Negative (Negative); Leukocyte Esterase-Dipstick 25 /ul (Negative); Nitrite-Dipstick Negative (Negative); Occult Blood-Urine Negative /ul (Negative); Protein-Dipstick Negative (Negative); Urine Bilirubin Dipstick Negative (Negative); Urine Clarity Clear (Clear); Urine Urobilinogen 1 mg/dl (Normal)
[2022-01-04 15:59] LABS: Absolute Neutrophil Count 6.9 X10^3/uL (2.0-7.7); Basophil# 0.02 X10^3/uL; Basophil% 0.2 % (0-1); Eosinophil# 0.35 X10^3/uL; Eosinophils% 3.5 % (0-5); Hematocrit 37.2 % (37-47); Mean Corp Hgb Conc 34.9 g/dL (32-36); Mean Corpuscular Volume 88.8 fL (81-99); Mean Platelet Vol. 9.8 fl (6.2-12.0); Monocyte# 0.37 X10^3/uL; Monocyte% 3.7 % (0-10); NRBC Flagged by Analyzer 0 % (0-5); Neutrophil # 6.92 X10^3/uL (2.7-7.7); Neutrophil % 69.1 % (47-70); Platelet Count 227 K/mm3 (150-450); RBC Distribution Width SD 42.1 fl (35.1-43.9); Red Blood Count 4.19 M/mm3 (4.2-5.4)
[2022-01-04 16:07] LABS: Amphetamine Urine VISTA NEGATIVE (<1000 ng/mL); Barbiturate Urine VISTA NEGATIVE (< 200 ng/mL); Benzodiazepine Urine VISTA NEGATIVE (< 200 ng/mL); Cocaine Urine VISTA NEGATIVE (< 300 ng/mL); Ecstacy Urine VISTA NEGATIVE (< 500 ng/mL); Methadone Urine VISTA NEGATIVE (< 300 ng/mL); PCP Urine VISTA NEGATIVE (< 25 ng/mL); THC Urine VISTA NEGATIVE (< 50 ng/mL); Vista UDS pH Range 6
[2022-01-04 16:50] LABS: Thyroid Stim Hormone (TSH) 6.09 uIU/mL (0.358-3.74)
[2022-01-07 09:07] LABS: HIV - WCH Non-Reactive (Nonreactive); Hepatitis B Surface Antigen Non-Reactive (Nonreactive); Hepatitis C Antibody Non-Reactive (Nonreactive); Rubella IgG Reactive (Nonreactive); Syphilis Antibodies Non-reactive
[2022-01-07 21:07] LABS: Chlamydia By Nucleic Acid AMP Negative (Negative)
[2022-01-07 21:15] LABS: Gonococcus By Nucleic Acid AMP Negative (Negative)
[2022-01-08 17:52] LABS: T4 Free Direct 0.87 ng/dL (0.76-1.46)
[2022-01-10 16:14] LABS: HPV Reflexed? NOT INDICATED
[2022-01-11 00:08] LABS: Thyroid Peroxidase AB 9 IU/mL (0-34)
[2022-01-11 13:44] LABS: Thyroglobulin Antibody < 1.0 IU/mL (0.0-0.9)
== END | disposition home or self-care (01) ==
PROVIDERS: Visit Provider Obstetrics & Gynecology
DX: Z34.82 Encounter for supervision of other normal pregnancy, second trimester (principal); Z12.4 Encounter for screening for malignant neoplasm of cervix; Z11.3 Encounter for screening for infections with a predominantly sexual mode of transmission
CPT/HCPCS: 36415; 80307; 81002; 84439; 84443; 85025; 86376; 86703; 86762; 86780; 86800; 86803; 87086; 87088; 87340; 87491; 87591; 88175; G0145

== ENCOUNTER → 2022-01-15 | Outpatient (CLI) | payer MEDICAID, SELFPAY ==
[2022-01-15 10:28] LABS: Glucose Challenge Gest 1H 50g 98 mg/dL (70-140)
== END | disposition home or self-care (01) ==
LOC: LAB 09:20
PROVIDERS: Referring Provider Obstetrics & Gynecology; Visit Provider Obstetrics & Gynecology
DX: Z34.82 Encounter for supervision of other normal pregnancy, second trimester (principal)
CPT/HCPCS: 36415; 82950

== ENCOUNTER → 2022-03-26 | Outpatient (CLI) | payer MEDICAID, SELFPAY ==
[2022-03-26 15:21] LABS: Hematocrit 35.3 % (37-47); Mean Corpuscular Volume 91.2 fL (81-99); Mean Platelet Vol. 10.6 fl (6.2-12.0); Platelet Count 165 K/mm3 (150-450); RBC Distribution Width CV 12.8 % (11.6-14.6); RBC Distribution Width SD 41.8 fl (35.1-43.9); Red Blood Count 3.87 M/mm3 (4.2-5.4); White Blood Count 6.8 K/mm3 (4.4-11.0)
[2022-03-26 15:34] LABS: Glucose Challenge Gest 1H 50g 139 mg/dL (70-140)
== END | disposition home or self-care (01) ==
PROVIDERS: Visit Provider Student in an Organized Health Care Education/Training Program
DX: Z34.83 Encounter for supervision of other normal pregnancy, third trimester (principal)
CPT/HCPCS: 36415; 82950; 85027

== ENCOUNTER → 2022-04-29 | Outpatient (CLI) | payer MEDICAID, SELFPAY ==
[2022-05-01 22:07] LABS: Chlamydia By Nucleic Acid AMP Negative (Negative)
[2022-05-02 08:58] LABS: Gonococcus By Nucleic Acid AMP Negative (Negative)
== END | disposition home or self-care (01) ==
LOC: LABSPEC 16:00
PROVIDERS: Visit Provider Student in an Organized Health Care Education/Training Program
DX: Z36.85 Encounter for antenatal screening for Streptococcus B (principal); Z11.3 Encounter for screening for infections with a predominantly sexual mode of transmission
CPT/HCPCS: 87081; 87491; 87591

== ENCOUNTER 2022-05-04 23:17 | Outpatient (CLI) | payer MEDICAID, SELFPAY ==
--- NOTE | 2022-05-04 23:28 | OB.TRI.NOTE ---
HPI - General General Date of Admission: 05/04/22 HPI Narrative MARISSA MARRERO, is a 21 F who presents with abdominal pain PFSH PFSH Medical History Asthma Home Medications albuterol sulfate 90 mcg/actuation aerosol inhaler (Ventolin HFA) 1 - 2 puff inhalation Q4H PRN PRN Wheezing ##1 07/09/21 [Rx Last Taken 07/12/21] albuterol sulfate 90 mcg/actuation aerosol inhaler (Ventolin HFA) 2 puff inhalation Q4H PRN PRN Wheezing ##1 07/13/21 [Rx Last Taken Unknown] levofloxacin 750 mg tablet 750 mg PO DAILY #4 tabs 07/13/21 [Rx Last Taken Unknown] prednisone 10 mg tablet 20 mg PO DAILY 5 days #10 tabs 07/13/21 [Rx Last Taken Unknown] Allergy/AdvReac Type Severity Reaction Status Date / Time No Known Allergies Allergy Verified 07/09/21 13:41 Social History Smoking Status: Never smoker History Elective abortions Hx Para 0 Spontaneous abortions Hx # Term Pregnancies Ectopic pregnancies Hx # Pregnancies Multiple births # of living children NST FHR Rate Baby A Baseline: 130 Variability:: Moderate Accelerations:: 15 x 15 Uterine Activity:: Quiet Assessment & Plan (1) : PLAN: Patient with abdominal pain no signs of labor. Overall stable. Tylenol given. Okay to discharge home
[2022-05-04 23:32] VITALS: BMI 32.6
[2022-05-04 23:39] VITALS: BP 116/60; PULSE 113
[2022-05-05] MEDS: Acetaminophen 500 MG Tablet 1000 MG PO (00:44)
== END 2022-05-05 00:47 | disposition home or self-care (01) ==
LOC: WPOUT 23:31 → WP 23:31
PROVIDERS: Visit Provider Obstetrics & Gynecology
DX: O99.891 Other specified diseases and conditions complicating pregnancy (principal); R10.0 Acute abdomen
CPT/HCPCS: 59025; 59050; 99218; G0378

== ENCOUNTER 2022-05-20 06:45 | Inpatient (IN) | payer MEDICAID, SELFPAY ==
[2022-05-20] VITALS (39 sets, daily range): BP systolic 90–123; BP diastolic 53–77; PULSE 55–98; RESP 16; TEMP 35.8–37.3; O2SAT 96–100; BMI 32.3
[2022-05-20] MEDS: 0.9% Saline Lock 10 ML Syringe IV ×3 (07:45→22:18)
[2022-05-20 07:56] LABS: Absolute Lymphocyte Count 2.21 X10^3/uL (0.83-4.51); Absolute Neutrophil Count 3.8 X10^3/uL (2.0-7.7); Basophil# 0.03 X10^3/uL; Basophil% 0.4 % (0-1); Eosinophil# 0.37 X10^3/uL; Eosinophils% 5.4 % (0-5); Hematocrit 36.1 % (37-47); Hemoglobin 11.9 g/dL (12.0-15.0); Lymphocyte # 2.21 X10^3/ul (0.83-4.51); Lymphocyte % 32.2 % (19-41); Mean Corpuscular Volume 90.9 fL (81-99); Mean Platelet Vol. 10.9 fl (6.2-12.0); Monocyte% 5.8 % (0-10); NRBC Flagged by Analyzer 0 % (0-5); Neutrophil # 3.83 X10^3/uL (2.7-7.7); Neutrophil % 55.9 % (47-70); Platelet Count 152 K/mm3 (150-450); RBC Distribution Width CV 13.1 % (11.6-14.6); RBC Distribution Width SD 42.6 fl (35.1-43.9); Red Blood Count 3.97 M/mm3 (4.2-5.4); White Blood Count 6.9 K/mm3 (4.4-11.0)
[2022-05-20] MEDS: miSOPROStol 25 MCG TABLET VAGINAL (08:02)
--- NOTE | 2022-05-20 10:38 | PCM.HP.BLA ---
History and Physical Date of Admission: 05/20/22 Chief complaint: Induction of labor at term History present illness: 21-year-old at 39 weeks and 0 days with SALLIE 05/27/2022 arrives for induction of labor at term. Denies headache, visual changes, chest pain, shortness of breath, nausea vomit, right upper quadrant pain. Patient states good movement. Obstetric history: G1: 39-week male G2: 39-week male G3: Current Past medical history: None Medications: vitamin Past surgical history: None Allergies: No known drug allergies Family history: Denies history DVT or PE Social history: Denies smoking, alcohol use, drug use Review of systems: Besides above pertinent positives a full review of systems was performed and found to be negative Physical exam: Vitals: Temperature 98.1 ?F SPO2 97% on room air General: Normal-appearing no acute distress HEENT: Normocephalic/atraumatic no cervical lymphadenopathy Cardiac/respiratory: No use of accessory muscles, nonlabored breathing Abdomen: Soft, nontender, gravid Extremities: No peripheral edema normal peripheral pulses Psych: Normal affect normal demeanor nonpressured speech Labs: White blood cell count 6.9 hemoglobin 11.9 hematocrit 36.1% platelets 152. Blood type a positive antibody negative Assessment plan: 21-year-old at 39 weeks and 0 days for induction of labor at term CEFM GBS negative Cytotec induction Routine orders
[2022-05-20] MEDS: Lactated Ringers 1,000 ML 50 ML IV (10:55)
[2022-05-20] MEDS: LACTATED RINGERS 500 ML 999 ML IV ×2 (12:37→14:10)
[2022-05-20] MEDS: Oxytocin 30 units/NS 500 ml 30 UNITS/500 ML IV.SOLN IV (13:13)
[2022-05-20] MEDS: fentaNYL-bupivacaine (epidural) 100 ML BAG EPIDURAL (14:45)
--- NOTE | 2022-05-20 16:36 | PN.OBGYN_ITS ---
Subjective Subjective Comfortable with epidural Objective Data Objective Data Vital Signs: Vital Signs Temp Pulse BP Pulse Ox 97.5 F L 65 94/53 L 96 05/20/22 15:39 05/20/22 15:57 05/20/22 15:57 05/20/22 15:57 Weight: 165 lb 5.547 oz Body Mass Index (BMI) 32.3 Intake & Output: Intake and Output for Last 24 Hours 05/18/22 05/19/22 05/20/22 23:59 23:59 23:59 Intake Total 1388.07 / 1388.07 Balance 1388.07 / 1388.07 Lab / Micro Data Result Diagrams: 05/20/22 07:35 Labs: Laboratory Results - last 24 hr 05/20/22 07:35: WBC 6.9, RBC 3.97 L, Hgb 11.9 L, Hct 36.1 L, MCV 90.9, MCH 30.0, MCHC 33.0, RDW Std Deviation 42.6, RDW Coeff of Yamel 13.1, Plt Count 152, MPV 10.9, Immature Gran % (Auto) 0.300, Neut % (Auto) 55.9, Lymph % (Auto) 32.2, [place] % (Auto) 5.8, Eos % (Auto) 5.4 H, Baso % (Auto) 0.4, Absolute Neuts (auto) 3.8, Absolute Lymphs (auto) 2.21, Nucleated RBC % 0 05/20/22 07:35: Blood Type A POSITIVE, Antibody Screen NEGATIVE Micro: Microbiology 05/20/22 07:35 Nasal Secretion SARS-CoV-2 Antigen (Rapid) - Final Physical Exam Const alert, oriented x3, no apparent distress, average body habitus, healthy appearing and well nourished HEENT normocephalic and moist oral mucous membranes Eyes PERRL Neck full ROM Resp normal respiratory effort, no retractions and no use of accessory muscles GI GI Narrative: Soft, nontender, gravid Narrative: Cervical exam 60/-3. AROM clear fluid. IUPC and FSE placed Extremity normal to inspection, full ROM and no clubbing, cyanosis or edema Neuro moves all extremities and no focal motor deficits Psych mental status grossly normal, affect normal, speech normal and activity/motor behavior normal Assessment & Plan (1) : PLAN: Patient seen and examined. AROM clear fluid. Acceleration with scalp stim, reassuring. Will restart Pitocin when category 1 tracing
[2022-05-20] MEDS: Lactated Ringers 1,000 ML 200 ML IV (17:41)
[2022-05-20] MEDS: Oxytocin 30 units/NS 500 ml 30 UNITS/500 ML IV.SOLN 334 UNITS IV (19:36)
--- NOTE | 2022-05-20 19:46 | EX.PCM.OBRPT ---
Vaginal Delivery Operative Information Date of Procedure: 05/20/22 Pre-Operative Diagnosis: Wise intrauterine Post-Operative Diagnosis: Wise intrauterine Surgery / Procedure Performed: Spontaneous Vaginal Delivery Type of Anesthesia: Epidural Estimated Blood Loss: 250cc Findings Description of Procedure: Spontaneous vaginal delivery of viable female. No nuchal cord. Baby to mom. Cord clamped and cut. Spontaneous delivery of placenta. No lacerations. (1 minute): 9 (5 minute): 10
[2022-05-21 02:35] VITALS: BP 91/46; PULSE 83; RESP 16; TEMP 36.7; O2SAT 96
[2022-05-21 06:45] VITALS: BP 95/46; PULSE 72; RESP 16; TEMP 36.4; O2SAT 100
[2022-05-21 07:59] VITALS: BP 94/50; PULSE 83; RESP 16; TEMP 36.3
--- NOTE | 2022-05-21 08:03 | PCM.PN.OB ---
Subjective Subjective day 1. Resting in bed. Many small lochia. Objective Data Objective Data Vital Signs: Vital Signs Temp Pulse Resp BP Pulse Ox O2 Del Method 97.6 F L 72 16 95/46 L 100 Room Air 05/21/22 06:45 05/21/22 06:45 05/21/22 06:45 05/21/22 06:45 05/21/22 06:45 05/21/22 06:45 Oxygen Delivery Method Room Air Weight: 75 kg Body Mass Index (BMI) 32.3 Intake & Output: Intake and Output for Last 24 Hours 05/19/22 05/20/22 05/21/22 23:59 23:59 23:59 Intake Total 2874.67 / 2874.67 Output Total 900 / 1700 1100 / 1100 Balance 1974.67 / 1174.67 -1100 / -1100 Lab / Micro Data Result Diagrams: 05/20/22 07:35 Labs: Laboratory Results - last 24 hr 05/20/22 07:35: Blood Type A POSITIVE, Antibody Screen NEGATIVE Micro: Microbiology 05/20/22 07:35 Nasal Secretion SARS-CoV-2 Antigen (Rapid) - Final Physical Exam Const alert, oriented x3 and no apparent distress HEENT normocephalic Head and Scalp: atraumatic Neck full ROM Resp normal respiratory effort Cardio regular rate GI normal to inspection, nondistended, normoactive bowel sounds GI Narrative: Uterus 2 cm below umbilicus Back/Spine normal ROM Extremity normal to inspection Extremity Narrative: Minimal pedal edema Neuro no focal motor deficits and no sensory deficits noted Psych mental status grossly normal and affect normal Assessment & Plan (1) (spontaneous vaginal delivery): PLAN: day 1 status post . Likely home tomorrow.
[2022-05-21 12:18] VITALS: BP 102/47; PULSE 84; RESP 16; TEMP 36.6
[2022-05-21] MEDS: Ibuprofen 600 MG Tablet PO ×2 (12:25→20:41)
[2022-05-21 17:44] VITALS: BP 116/61; PULSE 82; RESP 16; TEMP 36.6
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
[2022-05-21 20:00] VITALS: BP 116/63; PULSE 87; RESP 16; TEMP 36.8; O2SAT 100
--- NOTE | 2022-05-21 21:39 | NURSING ---
This RN in room at 2136 to help pt hand express and spoon feed to infant. Pt very uncomfortable with me asking to help her hand express for the first time. Pt stated my anxiety is kicking in, and stated she feels weird doing this when someone was watching. Unable to assess pts technique of hand expressing, pt said she would call me after she attempts to hand express and to observe what she could get and help feed to the .
[2022-05-22 01:40] VITALS: BP 95/39; PULSE 72; RESP 16; TEMP 36.3
[2022-05-22 01:55] VITALS: BP 103/53
--- NOTE | 2022-05-22 02:44 | DCINST_ITS ---
Discharge Instructions Diet Discharge Diet: No restrictions Activity Discharge Activity: Return to Normal Activity and May Shower May resume sexual activity in: 4-6 weeks Weight Bearing Status: Weight bearing as tolerated Lifting Restrictions: No greater than 25 pounds Dressing / Incision Call your doctor if you observe: Fever of 101 or Higher, Change in Color, Inability to urinate, Using more than 1 pad per hour, Shortness of breath, Dizziness, Swelling in the ankles, Chest pain and Calf discomfort Follow Up Care Please Follow Up With: Martha Scott DO When: 6-week visit Test Results: Test results from this visit will be discussed in further detail at your follow- up appointment, if applicable. Discharge Plan Admission Admit Date/Time: 05/20/22 06:45 Primary Reason for Your Visit: Vaginal delivery Attending Provider: Darnell Scott Primary Care Provider: Estefania Muller Primary Discharge Orders/Prescriptions Prescriptions: No Action albuterol sulfate [Ventolin HFA] 1 INHALER inhaler 1 - 2 puff inhalation Q4H PRN PRN (Reason: Wheezing) Qty: 1 0RF diphenhydramine HCl [Benadryl] 50 mg Capsule 50 mg PO BID Referrals / Follow Up: Care Physician,Estefania Primary [Primary Care Provider] - Disposition Disposition (needs filled in before D/C Order can be placed): Home, Self Care
--- NOTE | 2022-05-22 02:44 | PCM.PN.OB ---
Subjective Subjective No issues or concerns. Lochia minimal. Objective Data Objective Data Vital Signs: Vital Signs Temp Pulse Resp BP Pulse Ox O2 Del Method 97.3 F L 72 16 103/53 L 100 Room Air 05/22/22 01:40 05/22/22 01:40 05/22/22 01:40 05/22/22 01:55 05/21/22 20:00 05/21/22 20:00 Oxygen Delivery Method Room Air Weight: 75 kg Body Mass Index (BMI) 32.3 Intake & Output: Intake and Output for Last 24 Hours 05/20/22 05/21/22 05/22/22 23:59 23:59 23:59 Intake Total 2874.67 / 2874.67 Output Total 900 / 1700 1100 / 1100 Balance 1974.67 / 1174.67 -1100 / -1100 Lab / Micro Data Result Diagrams: 05/20/22 07:35 Micro: Microbiology 05/20/22 07:35 Nasal Secretion SARS-CoV-2 Antigen (Rapid) - Final Physical Exam Const alert, oriented x3 and no apparent distress HEENT normocephalic Head and Scalp: atraumatic Neck full ROM Resp normal respiratory effort Cardio regular rate GI normal to inspection, nondistended, normoactive bowel sounds GI Narrative: Uterus 2 cm below umbilicus Back/Spine normal ROM Extremity normal to inspection Extremity Narrative: Minimal pedal edema Neuro no focal motor deficits and no sensory deficits noted Psych mental status grossly normal and affect normal Assessment & Plan (1) (spontaneous vaginal delivery): PLAN: day 1 status post . Home today.
--- NOTE | 2022-05-22 02:50 | NURSING ---
This RN in room to wake pt for hand expression and possibly pumping. Pt very unwilling to wake up to feed baby. This RN stayed at bedside for 10 minutes until pt willing to wake up. Explained to pt to hand express and spoon feed first and then supplement with formula. Pump also explained to pt and pt states she understands. This RN then left room since pt feels uncomfortable with RN in room for hand expression.
--- NOTE | 2022-05-22 06:25 | NURSING ---
This RN has had to awake pt and remind her about feeding times for the infant throughout the night. Pt appropriate with infant, but has decreased motivation when its getting time for the to feed. After reminding and waking pt up, she proceeds to hand express and feed the infant formula.
--- NOTE | 2022-05-22 07:37 | NURSING ---
This RN attempted to awake MOB around 0620 to begin to feed the infant soon via hand expression and formula. At 0730 during report with Papo CALDERON for dayshift, MOB and boyfriend gabriel made us aware they did not have any more bottles of formula or nipples and were unable to start to feed the infant and stated they were just getting ready to call me. When asked MOB if she tried to hand express during that time period of an hour she stated no and that mommy was sleepy.
[2022-05-22 08:20] VITALS: BP 105/53; PULSE 81; RESP 16; TEMP 36.2; O2SAT 96
[2022-05-22] MEDS: Ibuprofen 600 MG Tablet PO ×2 (08:37→15:39)
--- NOTE | 2022-05-22 09:46 | NURSING ---
agree with student nurse assessment
[2022-05-22 13:19] VITALS: BP 105/51; PULSE 75; RESP 18; TEMP 36.2; O2SAT 96
--- NOTE | 2022-05-22 13:59 | NURSING ---
reviewed student nurse DW charting. used for learning and educational purposes.
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
--- NOTE | 2022-05-23 16:05 | CASEMGMT ---
Social Work Labor and Delivery Unit Patient/mother of baby (MOB) was discharged as of 05/22/2022. Infant is being discharged from the hospital as of 05/23/2022. Social work interventions occurring on 05/23/2022 documented in the infant's chart, which is directly linked to this visit number/delivery record. Refer to infant's chart for further details. MOB and discharging home, in the care of MOB. Will return to the residence in which was living prior to admission. [facility] is following this family closely. -SHARMIN Glasgow, DESIGNATED BROKER *This note was generated with [employer] software. It may contain incorrect words, spelling, and punctuation that were not noted in review of the chart prior to signing*
--- NOTE | 2022-05-24 11:07 | CASEMGMT ---
Social Work Labor and Delivery Unit Faxed [facility] [employer] referral form to confirmed fax at [facility] ([phone]), cindi Gutierrez. No other services requested or indicated. -DARLENE Glasgow, ELECTRICAL ELECTRONICS TECHNICIAN
== END 2022-05-22 17:55 | disposition home or self-care (01) | DRG 560 ==
PROVIDERS: Admitting Provider Obstetrics & Gynecology; Visit Provider Obstetrics & Gynecology
DX: O99.52 Diseases of the respiratory system complicating childbirth (principal); Z37.0 Single live birth; J45.909 Unspecified asthma, uncomplicated; Z3A.39 39 weeks gestation of pregnancy
CPT/HCPCS: 59025; 59050; 85025; 86850; 86900; 86901; 87426; 99218; J7120; A4216; G0378

== ENCOUNTER 2023-06-07 04:10 | Observation (INO) | payer MEDICAID, SELFPAY ==
[2023-06-07] VITALS (12 sets, daily range): BP systolic 93–130; BP diastolic 50–78; PULSE 68–96; RESP 14–18; TEMP 36.3–36.9; O2SAT 93–100; BMI 36.4; BMI 34.6
--- NOTE | 2023-06-07 | APP_PTH ---
PATIENT: MARISSA MARRERO LOC: MS3 U#:[id number] AGE/SX: ROOM: GA314 RE06/07/[address]: Dr. Fito Hines MD : 2000 BED: 1 DIS: 06/07/2023 SPEC #: [id number] RECD: 06/09/23 08:50 STATUS: SHAYNE QUIGLEYBoogie #: [id number] VINICIO: 06/07/23 00:[address]: Fito Hines DEPT: SURGICAL PATHOLOGY RECD BY: Anuj Mayen ENTERED: 06/09/23 09:42 SP TYPE: APPENDIX OTHR DR: No Primary Care Phys Tissues: Appendix, NOS Procedures: Surgery Specimen Level III HEADER OPERATION: Laparoscopic appendectomy PRE-OP DIAGNOSIS: Acute appendicitis TISSUE SUBMITTED: Appendix MICROSCOPIC DIAGNOSIS Appendix, appendectomy: Acute necrotizing appendicitis. Acute serositis. AM:miri 06/10/2023 MICROSCOPIC DESCRIPTION Slides are reviewed. GROSS DESCRIPTION Received in fixative is one container labeled with the patient's name and designated appendix. The specimen consists of a vermiform appendix measuring 4.0 cm in length and 1.0 cm in average diameter. No gross perforations are evident. Serial sections do not reveal mass lesions. [facility] Social Worker sections are submitted in one cassette. / AM:miri 06/09/2023 TC:2 CPT: 87430
--- NOTE | 2023-06-07 04:26 | CT_ITS ---
INDICATION: RLQ abd pain EXAMINATION: CT ABDOMEN AND PELVIS WITH CONTRAST - CT Abdomen And Pelvis W/ Contrast Injection TECHNIQUE: Helically acquired images were obtained of the abdomen and pelvis following IV contrast. A radiation dose optimization technique was used for this scan. IV Contrast dosage and agent: 100 mL [id number] Oral contrast: None. COMPARISON: None. FINDINGS: LOWER CHEST: Lung bases are clear. No cardiomegaly or pericardial effusion. LIVER: Homogeneous with mild focal fat in segment 4 along the falciform ligament.. No focal mass. GALLBLADDER AND BILIARY TREE: No calcified gallstones. No gallbladder distension or wall edema. No intra- or extrahepatic biliary ductal dilation. PANCREAS: No focal cystic or solid mass. SPLEEN: Normal size without focal cystic or solid mass. ADRENAL GLANDS: No nodules. KIDNEYS AND URETERS: Normal renal size and position. No hydronephrosis. PERITONEUM: Trace dependent fluid in the cul-de-sac which is commonly physiologic. No organized fluid collection or abscess. No free air. BOWEL: No acute gastric finding. No small bowel distention or focal wall thickening. Unremarkable terminal ileum. Appendix mildly enlarged at 8.5 mm with mild surrounding inflammatory stranding. Few subcentimeter right lower quadrant reactive lymph nodes. LYMPH NODES: As above. VESSELS: Aorta is non-dilated. URINARY BLADDER: Unremarkable. REPRODUCTIVE ORGANS: Unremarkable uterus. 1.7 cm dominant right ovarian follicle. Multiple small left ovarian follicles. ABDOMINAL WALL: No discrete abdominal or pelvic wall hernia. BONES: No lytic or blastic abnormality. CT/Abdomen/Pelvis W IV Cont ONLY IMPRESSION: Mildly enlarged appendix with surrounding inflammatory stranding concerning for early acute appendicitis in the appropriate setting. No evidence of abscess or perforation. Right ovarian dominant 1.7 cm follicle with trace likely physiologic free fluid in the cul-de-sac. N.B. : The above Results were Read Back by Rinku Mueller MD to Emmett Ferguson MD, and understanding confirmed on 06/07/2023 06:42:10 (ET). Electronically Signed: Rinku Mueller MD at 6:42 EDT ,
--- NOTE | 2023-06-07 04:27 | EDS_ITS ---
HPI HPI - GI History of Present Illness Chief Complaint: Abd Pain Detail of Chief Complaint: Back and right lower quadrant abdominal pain since 11 PM tonight. Informant: patient Abdominal Pain/Flank Pain Onset: Today and Yesterday Context: Gradual Onset Timing: Continuous Quality: Cramping Location: RLQ Current Severity: Mild Maximum Severity: Mild Worsened by: Nothing Relieved by: Nothing Nausea/Vomiting/Emesis GI Symptom: Negative for Nausea or Vomiting Diarrhea/Melena/Hematochezia GI Symptom: Negative for Diarrhea, Melena or Hematochezia Associated Symptoms Associated Symptoms: Negative for Dysuria, Frequency, Hematuria or Urgency Narrative Narrative: 22-year-old female with past medical history of anxiety and depression. Complaining of lower abdominal pain primarily suprapubic and right lower quadrant since around 11 PM last night. Denies any fever or chills. Denies any trauma. Denies any dysuria. Denies any vaginal bleeding or discharge. States her last menstrual period was 1 to 2 weeks ago. She denies any nausea, vomiting or diarrhea. Denies any loss of appetite. Denies any prior abdominal surgery. Denies being . History of Ab0. Prior similar symptoms: No Recent Illness/Hospitalization: No PFSH PFSH Medical History Anxiety Asthma Depression (spontaneous vaginal delivery) Home Medications diphenhydramine HCl 50 mg capsule 50 mg PO BID allergies 05/20/22 [History Last Taken 05/20/22 06:00] Allergy/AdvReac Type Severity Reaction Status Date / Time No Known Allergies Allergy Verified 06/07/23 04:16 Social History Smoking Status: Never smoker ROS ROS ED ROS Narrative Lower abdominal pain. Review of Systems ROS Unobtainable: Denies due to encephalopathy Constitutional Constitutional ED: Denies chills or fever(s) ENT ENT ED: Denies ear pain Cardiovascular Cardiovascular: Denies chest pain Respiratory/Chest Respiratory/Chest: Denies cough or dyspnea Gastrointestinal Gastrointestinal: Reports abdominal pain; Denies constipation, diarrhea, melena, nausea, vomiting or other Genitourinary Genitourinary ED: Denies dysuria or hematuria Musculoskeletal Musculoskeletal: Denies arthralgias or back pain Integumentary Denies abscess or Abrasions Neurologic Neurologic: Denies headache(s) Psychiatric Psychiatric: Denies anxiety or depression Endocrine Endocrinology: Denies polydipsia Hematologic/Lymphatic Hematologic/Lymphatic: Denies easy bleeding Allergic/Immunologic Allergic/Immunologic ED: Denies mouth swelling, tongue swelling or urticaria EXAM Physical Exam Narrative Exam Narrative: Well-appearing 22-year-old female. Vital signs are stable and afebrile. H EENT exam unremarkable. Moist mucous membranes. Neck nontender no lymphadenopathy. Lungs clear to auscultation. Heart regular rhythm no murmur. Natalie soft, nondistended, normal bowel sounds without peritoneal signs. She does complain of right lower quadrant and suprapubic discomfort to palpation. No hernia or mass. No signs of trauma. Right upper quadrant is unremarkable. Left side abdomen is nontender. Moving all 4 extremities. Back nontender. She is awake and alert. Const Vital Signs: 06/07/23 04:12 06/07/23 06:10 Temperature 98.4 F Temperature Source Oral Pulse Rate 84 76 Respiratory Rate 18 16 Blood Pressure 125/68 H 105/76 Blood Pressure Mean 87 85 Pulse Ox 97 93 Oxygen Delivery Method Room Air Positive well nourished and well developed; Negative for cachectic, contractures or unkempt General Appearance ED: well developed and NAD; Negative for unkempt, cachectic, contractures or pallor Nutritional Appearance: Negative for cachectic HEENT Reports moist mucous membranes normocephalic and atraumatic; Negative for trauma or tenderness Eyes PERRL and EOMs intact bilaterally General Eye ED: Negative for pale conjunctiva or scleral icterus Neck no lymphadenopathy, supple and no JVD General: Negative for tenderness Carotids: Negative for other Lymph Lymphatic: Negative for other Resp normal respiratory effort and clear to auscultation bilaterally Effort and Inspection: Negative for respiratory distress Auscultation: Negative for rales, rhonchi or wheezes Cardio regular rate, regular rhythm, S1 normal heart sound, S2 normal heart sound and no murmurs Rate: Negative for bradycardia or tachycardic Rhythm: Negative for abnormal rhythm GI no masses; Negative for non-tender GI Narrative: Lower quadrant suprapubic tenderness. No peritoneal signs. No distention or hernia. No mass. Inspection: abdominal distention Auscultation: normoactive bowel sounds Palpation: soft and tender; Negative for guarding, rigid, hepatomegaly, splenomegaly, hernia, mass, pulsatile mass or rebound tenderness present Back/Spine no CVA tenderness General Back: Negative for CVA tenderness Cervical Spine: Negative for cervical spine tenderness Thoracic Spine / Upper Back: Negative for thoracic spinal tenderness Lumbar Spine / Lower Back: Negative for lumbar spinal tenderness Coccyx: Negative for other Extremity full ROM General Extremety ED: Negative for edema or tenderness General Extremity: Negative for edema Neuro CN's II-XII intact bilaterally and moves all extremities Sensorium / Orientation: alert, oriented to person, oriented to place and oriented to time; Negative for orientation impaired, confused, lethargic or stuporous Motor Exam: strength 5/5 throughout Psych mental status grossly normal and thought process normal Appearance: Negative for unkempt or other Attitude: No agitated Mood & Affect: Negative for depressed, anxious or tearful Skin no wounds General Skin Exam: Negative for jaundice or pallor Lesions: no lesions Rashes: no rashes Trauma: Negative for abrasion MDM MDM MDM Narrative Medical decision making narrative: 22-year-old female with complaint of right lower abdominal pain suprapubic pain. Clinically I do not have a strong suspicion that is appendicitis but it is definitely in the differential. She denies any urinary symptoms. Clinically does not appear to be gallbladder appears to be too low. She has had no abdominal trauma. CAT scan labs are pending. She denies being . She does not currently waiting for pain. Exam patient is doing well at 5:48 AM. Abdomen is benign. She is resting comfortably. We went over her test results. We are awaiting her CAT scan resu lts. The urine shows white cells and bacteria but is contaminated with epithelial cells. She is having no urinary symptoms. She denies any dysuria, urgency or frequency. Radiologist called me with the CAT scan results at 6:40 AM. He believes the patient has an early appendicitis. I spoke with Dr. Fito Toth on-call for general surgery. He will be in evaluate the patient. I discussed the test results with the patient. She will be started on IV Zosyn. History & Record Review Discussion w/independent historian: Patient Additional record(s) reviewed:: Prior inpatient record, Prior outpatient record and Prior ED visit Lab Data Attestation: I reviewed the patient's lab results. Lab results narrative: C normal. White count of 10. H&H 12 and 39. Platelets 199. Electrolytes showed a potassium of 3.3. Gap of 5. Normal BUN and creatinine. Liver enzymes were normal. Urine test was negative. Urinalysis showed no nitrates. No red cells. 5-10 white cells. 3+ bacteria. The 10 epithelial cells. Consistent with contamination. Labs: Laboratory Results - last 24 hr 06/07/23 06/07/23 04:45 04:50 WBC 10.3 RBC 4.38 Hgb 12.8 Hct 39.3 MCV 89.7 MCH 29.2 MCHC 32.6 RDW Std Deviation 41.6 RDW Coeff of [place]amel 12.6 Plt Count 199 MPV 9.6 Immature Gran % (Auto) 0.400 Neut % (Auto) 68.9 Lymph % (Auto) 24.5 Orange % (Auto) 4.2 Eos % (Auto) 1.6 Baso % (Auto) 0.4 Absolute Neuts (auto) 7.1 Absolute Lymphs (auto) 2.53 Nucleated RBC % 0 Sodium 140 Potassium 3.3 L Chloride 107 Carbon Dioxide 28.0 Anion Gap 5 BUN 10 Creatinine 0.61 Estim Creat Clear Calc 103.03 Est GFR (MDRD) Af Amer 155 Est GFR (MDRD) Non-Af 128 BUN/Creatinine Ratio 16.4 Glucose 102 Calcium 8.9 Total Bilirubin 0.20 AST 20 ALT 39 Alkaline Phosphatase 112 Total Protein 7.2 Albumin 3.7 Globulin 3.5 Albumin/Globulin Ratio 1.1 Serum , Qual NEGATIVE Urine Color Yellow Urine Clarity Clear Urine pH 6.5 Ur Specific [place] 1.020 Urine Protein 15 H Urine Glucose (UA) Normal Urine Ketones Negative Urine Occult Blood Negative Urine Nitrite Negative Urine Bilirubin Negative Urine Urobilinogen Normal Ur Leukocyte Esterase 100 H Urine RBC 0-5 SEEN Urine WBC 5-10 SEEN Ur Squamous Epith Cells 5-10 SEEN Urine Bacteria 3+ Urine Mucus 0 SEEN Radiography Diagnostic Testing: Clinical Impression(s) from Imaging Studies Abdomen/Pelvis CT 06/07/23 04:26 IMPRESSION: Mildly enlarged appendix with surrounding inflammatory stranding concerning for early acute appendicitis in the appropriate setting. No evidence of abscess or perforation. Right ovarian dominant 1.7 cm follicle with trace likely physiologic free fluid in the cul-de-sac. N.B. : The above Results were Read Back by Rinku Mueller MD to Emmett Ferguson MD, and understanding confirmed on 06/07/2023 06:42:10 (ET). Electronically Signed: Rinku Mueller MD at 6:42 EDT , ADDENDUM: 06/07/23 0649 IMPRESSION: Mildly enlarged appendix with surrounding inflammatory stranding concerning for early acute appendicitis in the appropriate setting. No evidence of abscess or perforation. Right ovarian dominant 1.7 cm follicle with trace likely physiologic free fluid in the cul-de-sac. N.B. : The above Results were Read Back by Rinku Mueller MD to Emmett Ferguson MD, and understanding confirmed on 06/07/2023 06:42:10 (ET). Electronically Signed: Rinku Mueller MD at 6:42 EDT , Discharge Plan Dx/Rx/DC Orders Clinical Impression: Abdominal pain, Acute appendicitis Disposition Disposition: Acute Care Hospital [facility]
[2023-06-07 04:54] LABS: Mucous, Urine 0 SEEN /hpf (<or=2+)
[2023-06-07 04:55] LABS: Color, Urine Yellow (Yellow); Glucose, Dipstick Normal (Normal); Ketone-Dipstick Negative (Negative); Leukocyte Esterase-Dipstick 100 /ul (Negative); Nitrite-Dipstick Negative (Negative); Occult Blood-Urine Negative /ul (Negative); Protein-Dipstick 15 mg/dl (Negative); Urine Bilirubin Dipstick Negative (Negative); Urine Clarity Clear (Clear); Urine Urobilinogen Normal (Normal); Urine pH 6.5 (5.0 - 8.0)
[2023-06-07 05:05] LABS: Absolute Lymphocyte Count 2.53 X10^3/uL (0.83-4.51); Absolute Neutrophil Count 7.1 X10^3/uL (2.0-7.7); Basophil# 0.04 X10^3/uL; Basophil% 0.4 % (0-1); Eosinophil# 0.17 X10^3/uL; Eosinophils% 1.6 % (0-5); Hematocrit 39.3 % (37-47); Hemoglobin 12.8 g/dL (12.0-15.0); Lymphocyte # 2.53 X10^3/ul (0.83-4.51); Lymphocyte % 24.5 % (19-41); Mean Corp Hgb Conc 32.6 g/dL (32-36); Mean Corpuscular Hgb 29.2 pg (27.0-32.0); Mean Corpuscular Volume 89.7 fL (81-99); Mean Platelet Vol. 9.6 fl (6.2-12.0); Monocyte# 0.43 X10^3/uL; Monocyte% 4.2 % (0-10); NRBC Flagged by Analyzer 0 % (0-5); Neutrophil % 68.9 % (47-70); Platelet Count 199 K/mm3 (150-450); RBC Distribution Width CV 12.6 % (11.6-14.6); RBC Distribution Width SD 41.6 fl (35.1-43.9); Red Blood Count 4.38 M/mm3 (4.2-5.4); White Blood Count 10.3 K/mm3 (4.4-11.0)
[2023-06-07 05:25] LABS: Internal QC Validated? YES +Cl - CLEAR BKGD; Pregnancy, Serum, hCG Quali. NEGATIVE Negative
[2023-06-07 05:27] LABS: ALB/GLOB Ratio 1.1 RATIO (0.9-2.4); AST(SGOT) 20 U/L (15-37); Alanine Aminotransfer ALT/SGPT 39 U/L (13-56); Albumin, Serum 3.7 g/dL (3.2-5.0); Alkaline Phosphatase 112 U/L (45-117); Anion Gap 5 (5-15); BUN 10 mg/dL (7-18); BUN/Creat Ratio 16.4 RATIO (10-20); Calcium,Total 8.9 mg/dL (8.5-10.1); Chloride 107 mmol/L (98-107); Creatinine, Serum 0.61 mg/dL (0.55-1.02); EST Glomerular Filtration Rate 128 mL/min (>60); Est Glom Filt Rate - Afr Amer 155 mL/min (>60); Estimated Creatinine Clearance 103.03 ml/min; Globulin 3.5 g/dL (2.2-4.2); Glucose 102 mg/dL (74-106); Potassium 3.3 mmol/L (3.5-5.1); Protein, Total 7.2 g/dL (6.4-8.2); Sodium Level 140 mmol/L (136-145)
[2023-06-07 05:28] LABS: Bacteria 3+ /hpf (None Seen); Red Blood Cells-Urine 0-5 SEEN /hpf (0-5); Squamous Epithelial Cells - UA 5-10 SEEN /hpf (5-10); White Blood Cells 5-10 SEEN /hpf (0-5)
[2023-06-07] MEDS: Piperacil/Tazobactam 4.5 GM in 0.9% Normal Saline (100mL MB+) 100 ML IV (07:39)
[2023-06-07] MEDS: Ondansetron 4 MG/2 ML Vial IV (07:40)
[2023-06-07] MEDS: morphine 8 MG/ML Syringe 6 MG IV (07:42)
--- NOTE | 2023-06-07 08:38 | PCM.HP.STD ---
HPI - General HPI Narrative MARISSA MARRERO, is a 22 F who presents with right lower quad pain. She says the pain started yesterday morning at 11. She says that it progressed and she started having worsening pain overnight. She says she has had nausea but no vomiting. She denies fevers or chills. She does have congestion but she says this is due to her allergies. [facility] Medical History Anxiety Asthma Depression (spontaneous vaginal delivery) Home Medications diphenhydramine HCl 50 mg capsule 50 mg PO BID allergies 05/20/22 [History Last Taken 05/20/22 06:00] Allergy/AdvReac Type Severity Reaction Status Date / Time No Known Allergies Allergy Verified 06/07/23 04:16 Social History Smoking Status: Never smoker ROS Constitutional Constitutional: Denies anorexia, chills, fatigue or fever(s) Eyes Eyes: Denies blurry vision ENT HEENT: Denies abnormal hearing Cardiovascular Cardiovascular: Denies chest pain Respiratory/Chest Respiratory/Chest: Denies cough or dyspnea Gastrointestinal Gastrointestinal: Reports abdominal pain and nausea; Denies constipation, diarrhea, dysphagia or vomiting Genitourinary Genitourinary: Denies change in urinary stream Musculoskeletal Musculoskeletal: Denies abnormal gait Integumentary Integumentary: Denies jaundice Neurologic Neurologic: Denies abnormal gait Psychiatric Psychiatric: Denies anxiety Vital Signs Vital Signs Vital Signs: 06/07/23 04:12 06/07/23 06:10 06/07/23 07:38 Temperature 98.4 F 98 F Temperature Source Oral Pulse Rate 84 76 73 Respiratory Rate 18 16 16 Blood Pressure 125/68 H 105/76 122/68 H Blood Pressure Mean 87 85 86 Pulse Ox 97 93 98 Oxygen Delivery Method Room Air Weight Weight: 186 lb 11.704 oz Body Mass Index (BMI) 36.4 Physical Exam Const oriented x3 and no apparent distress Resp normal respiratory effort Cardio regular rate and regular rhythm GI soft to palpation Inspection: Negative for abdominal distention Palpation: tender RLQ Results Lab / Micro Data 06/07/23 04:50 06/07/23 04:50 Labs: Laboratory Results - last 24 hr 06/07/23 04:45: Urine Color Yellow, Urine Clarity Clear, Urine pH 6.5, Ur Specific [place] 1.020, Urine Protein 15 H, Urine Glucose (UA) Normal, Urine Ketones Negative, Urine Occult Blood Negative, Urine Nitrite Negative, Urine Bilirubin Negative, Urine Urobilinogen Normal, Ur Leukocyte Esterase 100 H, Urine RBC 0-5 SEEN, Urine WBC 5-10 SEEN, Ur Squamous Epith Cells 5-10 SEEN, Urine Bacteria 3+, Urine Mucus 0 SEEN 06/07/23 04:50: WBC 10.3, RBC 4.38, Hgb 12.8, Hct 39.3, MCV 89.7, MCH 29.2, MCHC 32.6, RDW Std Deviation 41.6, RDW Coeff of [place] 12.6, Plt Count 199, MPV 9.6, Immature Gran % (Auto) 0.400, Neut % (Auto) 68.9, Lymph % (Auto) 24.5, [place] % (Auto) 4.2, Eos % (Auto) 1.6, Baso % (Auto) 0.4, Absolute Neuts (auto) 7.1, Absolute Lymphs (auto) 2.53, Nucleated RBC % 0, Sodium 140, Potassium 3.3 L, Chloride 107, Carbon Dioxide 28.0, Anion Gap 5, BUN 10, Creatinine 0.61, Estim Creat Clear Calc 103.03, Est GFR (MDRD) Af Amer 155, Est GFR (MDRD) Non-Af 128, BUN/Creatinine Ratio 16.4, Glucose 102, Calcium 8.9, Total Bilirubin 0.20, AST 20, ALT 39, Alkaline Phosphatase 112, Total Protein 7.2, Albumin 3.7, Globulin 3.5, Albumin/Globulin Ratio 1.1, Serum , Qual NEGATIVE Radiology Impression Abdomen/Pelvis CT 06/07/23 04:26 IMPRESSION: Mildly enlarged appendix with surrounding inflammatory stranding concerning for early acute appendicitis in the appropriate setting. No evidence of abscess or perforation. Right ovarian dominant 1.7 cm follicle with trace likely physiologic free fluid in the cul-de-sac. N.B. : The above Results were Read Back by Rinku Mueller MD to Emmett Ferguson MD, and understanding confirmed on 06/07/2023 06:42:10 (ET). Electronically Signed: Rinku Mueller MD at 6:42 EDT , ADDENDUM: 06/07/23 0649 IMPRESSION: Mildly enlarged appendix with surrounding inflammatory stranding concerning for early acute appendicitis in the appropriate setting. No evidence of abscess or perforation. Right ovarian dominant 1.7 cm follicle with trace likely physiologic free fluid in the cul-de-sac. N.B. : The above Results were Read Back by Rinku Mueller MD to Emmett Ferguson MD, and understanding confirmed on 06/07/2023 06:42:10 (ET). Electronically Signed: Rinku Mueller MD at 6:42 EDT , Assessment & Plan Assessment/Plan (1) Acute appendicitis: QUALIFIERS: Acute appendicitis type: unspecified acute appendicitis type Qualified Code(s): K35.80 - Unspecified acute appendicitis PLAN: The patient has been having right lower quadrant pain since last night. She had a CT scan which suggested acute appendicitis. There was some inflammation around the appendix and enlargement. I discussed laparoscopic appendectomy with the patient in detail. I discussed the risks including but not limited to bleeding, infection, injury other organs such as the bowel, bladder or ureter. Patient understands the risks and is willing to proceed. She was given Zosyn in the emergency room. She will be taken to surgery today once the operating room is available. Fito Hines MD Pager: [facility] [address] [place] [address], [address] [place] [address] Office:
[2023-06-07] MEDS: 0.9% Normal Saline (1000mL) 1,000 ML 100 ML IV (11:00)
[2023-06-07] MEDS: Bupivacaine 0.25% 30 ML Vial (13:45)
--- NOTE | 2023-06-07 14:05 | OP.PCM_ITS ---
Report of Operation Date of Procedure: 06/07/23 Pre-Operative Diagnosis: Acute appendicitis Post-Operative Diagnosis: Acute appendicitis Surgery/Procedure Performed:: Laparoscopic appendectomy Type of Anesthesia: General/Regional Specimen's removed: Appendix Estimated Blood Loss (mL): 5 Description of Procedure: The patient was brought into the operating room and general anesthesia was induced. The left arm was tucked and the abdomen was prepped and draped in usual sterile fashion. A small midline incision was made superior to the umbilicus and deepened to the level of the fascia. The fascia was elevated and incised. The peritoneum was also elevated and incised. A finger sweep was performed and a balloon trocar was placed into the abdomen and inflated. The abdomen was insufflated to 15 mmHg and the camera was inserted and the abdomen was inspected for any injuries upon entering the abdomen. There were none. The patient was placed in Trendelenburg position and a 5 mm ports placed in the left lower quadrant and suprapubic areas under direct visualization. Next using atraumatic bowel graspers the appendix was identified. The appendix appeared to have a dark area near its tip that resembled endometriosis that was densely adherent to the outside of the appendix. There was no other endometriosis in the patient's pelvis that I could see. The appendix was grasped and elevated and Enseal was used to take down the mesoappendix. A stapler was used to come across the base of the appendix. The appendix was then placed in Endo Catch bag and removed through the umbilical incision. The staple line was inspected and found to be hemostatic and intact. The 2 5 mm ports are removed under direct visualization. The balloon trocar was deflated and removed and all the air was removed from the abdomen. The umbilical incision fascia was closed with an 0 Vicryl [id number] suture. The incisions were then irrigated with saline and dried. Local anesthetic was injected into the incision sites. The skin incisions were then closed with interrupted 4-0 Monocryl suture and Steri- Strips. Bandages were applied and the patient was awoken and taken to PACU in stable condition. Patient tolerated the procedure well. Admit VTE Documentation VTE Mechan Device Prophylaxis: SCD's
--- NOTE | 2023-06-07 14:14 | DS.PCM_ITS ---
Providers Date of Admission: 06/07/23 Primary Care Physician: No Primary Care Phys Reason For Visit: ACUTE APPENDICITIS Diagnosis Discharge Diagnosis (1) Acute appendicitis: Status: Acute Code(s): K35.80 - Unspecified acute appendicitis Qualifiers: Acute appendicitis type: unspecified acute appendicitis type Qualified Code(s): K35.80 - Unspecified acute appendicitis Plan: The patient has been having right lower quadrant pain since last night. She had a CT scan which suggested acute appendicitis. There was some inflammation around the appendix and enlargement. I discussed laparoscopic appendectomy with the patient in detail. I discussed the risks including but not limited to bleeding, infection, injury other organs such as the bowel, bladder or ureter. Patient understands the risks and is willing to proceed. She was given Zosyn in the emergency room. She will be taken to surgery today once the operating room is available. Fito Hines MD Pager: [facility] [address] [place] [address] [address] [place] [address] Office: Medications at Discharge Home Medications diphenhydramine HCl 50 mg capsule 50 mg PO BID allergies 05/20/22 acetaminophen 325 mg tablet 650 mg (2 x 325 mg) PO Q4H PRN PRN Pain 1-10 Or Fever #0 tabs 06/07/23 oxycodone 5 mg tablet 5 mg PO Q4H PRN pain 5 days #15 tabs 06/07/23 Hospital Course Operations appendectomy Summary of Care Provided Hospital Course: The patient was admitted with acute appendicitis. She was admitted from the emergency room and then that afternoon she was taken for laparoscopic appendectomy. Once tolerating a diet she was then discharged home. Weight / BMI Weight Weight: 180 lb 2 oz Body Mass Index (BMI) 34.6 ABG / Lab / Microbiology Data 06/07/23 04:50 06/07/23 04:50 Laboratory: Laboratory Results - last 24 hr 06/07/23 04:45: Urine Color Yellow, Urine Clarity Clear, Urine pH 6.5, Ur Spe cific [place] 1.020, Urine Protein 15 H, Urine Glucose (UA) Normal, Urine Ket ones Negative, Urine Occult Blood Negative, Urine Nitrite Negative, Urine Bilirubin Negative, Urine Urobilinogen Normal, Ur Leukocyte Esterase 100 H, Urine RBC 0-5 SEEN, Urine WBC 5-10 SEEN, Ur Squamous Epith Cells 5-10 SEEN, Urine Bacteria 3+, Urine Mucus 0 SEEN 06/07/23 04:50: WBC 10.3, RBC 4.38, Hgb 12.8, Hct 39.3, MCV 89.7, MCH 29.2, MCHC 32.6, RDW Std Deviation 41.6, RDW Coeff of Ymael 12.6, Plt Count 199, MPV 9.6, Immature Gran % (Auto) 0.400, Neut % (Auto) 68.9, Lymph % (Auto) 24.5, [place] % (Auto) 4.2, Eos % (Auto) 1.6, Baso % (Auto) 0.4, Absolute Neuts (auto) 7.1, Absolute Lymphs (auto) 2.53, Nucleated RBC % 0, Sodium 140, Potassium 3.3 L, Chloride 107, Carbon Dioxide 28.0, Anion Gap 5, BUN 10, Creatinine 0.61, Estim Creat Clear Calc 103.03, Est GFR (MDRD) Af Amer 155, Est GFR (MDRD) Non-Af 128, BUN/Creatinine Ratio 16.4, Glucose 102, Calcium 8.9, Total Bilirubin 0.20, AST 20, ALT 39, Alkaline Phosphatase 112, Total Protein 7.2, Albumin 3.7, Globulin 3.5, Albumin/Globulin Ratio 1.1, Serum , Qual NEGATIVE Radiography Diagnostic Testing: Radiology Impression Abdomen/Pelvis CT 06/07/23 04:26 IMPRESSION: Mildly enlarged appendix with surrounding inflammatory stranding concerning for early acute appendicitis in the appropriate setting. No evidence of abscess or perforation. Right ovarian dominant 1.7 cm follicle with trace likely physiologic free fluid in the cul-de-sac. N.B. : The above Results were Read Back by Rinku Mueller MD to Emmett Ferguson MD, and understanding confirmed on 06/07/2023 06:42:10 (ET). Electronically Signed: Rinku Mueller MD at 6:42 EDT , ADDENDUM: 06/07/23 0649 IMPRESSION: Mildly enlarged appendix with surrounding inflammatory stranding concerning for early acute appendicitis in the appropriate setting. No evidence of abscess or perforation. Right ovarian dominant 1.7 cm follicle with trace likely physiologic free fluid in the cul-de-sac. N.B. : The above Results were Read Back by Rinku Mueller MD to Emmett Ferguson MD, and understanding confirmed on 06/07/2023 06:42:10 (ET). Electronically Signed: Rinku Mueller MD at 6:42 EDT , D/C Instructions Discharge Diet: Light diet - advance as tolerated Discharge Activity: May Not Drive (for 2-3 days or while taking narcotic pain medications) May shower in (days): 1 Call your doctor if your incision/area has: Continuous Slow Oozing, Sudden Increased Bleeding, Increased Pain/ Swelling, Increased Redness and Foul Smelling Discharge Call your doctor if you observe: Fever of 101 or Higher Suture Line Care: Avoid Pulling/Pushing and Avoid Pinching/Bending Remove Dressing in: 2 days Cleanse incision/area with: Soap & Water Additional Instructions: Keep dressing clean and dry. Change or remove dressing in 2 days. Leave steri strips for 1 week. May protect with a gauze bandaid. Please Follow Up With: Fito Hines MD When: Please call to schedule 2 week follow up appointment at [phone] Meaningful Use Info Meaningful Use Diagnoses (Choose all that apply): None applicable Discharge Plan Admission Admit Date/Time: 06/07/23 07:52 Attending Provider: Fito Hines Primary Care Provider: Care Physician,No Primary Instructions Additional Instructions / Restrictions: Your labs were normal. Motrin and Tylenol for pain. Follow-up with a doctor if not improving. Discharge Orders/Prescriptions Prescriptions: New acetaminophen 325 mg Tablet 650 mg PO Q4H PRN PRN (Reason: Pain 1-10 Or Fever) Qty: 0 0RF oxycodone 5 mg tablet 5 mg PO Q4H PRN (Reason: pain) 5 Days Qty: 15 0RF Continued diphenhydramine HCl 50 mg Capsule 50 mg PO BID Referrals / Follow Up: Gideon Ruiz MD [Med Staff - [facility]] - 3-5 Days if not improving Care Physician,No Primary [Primary Care Provider] - Disposition Disposition (needs filled in before D/C Order can be placed): Home, Self Care
[2023-06-07] MEDS: Morphine 2 MG/ML Syringe IV (17:24)
[2023-06-07] MEDS: Acetaminophen 325 MG Tablet 650 MG PO (17:24)
[2023-06-07] MEDS: 0.9% Saline Lock 10 ML Syringe IV (19:47)
[2023-06-07] MEDS: Ketorolac 15 MG/ML Vial IV (19:47)
== END 2023-06-07 20:17 | disposition home or self-care (01) ==
LOC: ED 06:41 → MS3 09:41
PROVIDERS: Admitting Provider Surgery; Emergency Provider Emergency Medicine; Visit Provider Surgery
PROC: 0DTJ4ZZ Resection of Appendix, Percutaneous Endoscopic Approach (ICD-10-PCS; CPT 44970; principal; 2023-06-07 13:15)
DX: K35.80 Unspecified acute appendicitis (principal); J45.909 Unspecified asthma, uncomplicated
CPT/HCPCS: 44970; 00840; C1760; 74177; 80053; 81001; 84703; 85025; 88304; 96365; 96366; 96375; 96376; 99221; 99284; J7030; Q9967; A4216; G0378; J2405

== ENCOUNTER 2023-07-12 11:18 | Emergency (ER) | payer MEDICAID, SELFPAY ==
[2023-07-12 11:20] VITALS: BP 113/70; PULSE 87; RESP 14; TEMP 36.8; O2SAT 98; BMI 35.6
--- NOTE | 2023-07-12 11:32 | EX.ED.DYSGE1 ---
HPI History of Present Illness Chief Complaint: Wound Informant: patient Narrative Narrative: Patient presents with a postop wound. Patient had a laparoscopic appendectomy on June [address] Hines. The trocar site just superior to her umbilicus has a small scabbed lesion. She states that she scratched at it and got some drainage of blood and pus. She has otherwise felt well. PFSH PFS Medical History Anxiety Asthma Depression (spontaneous vaginal delivery) Home Medications diphenhydramine HCl 50 mg capsule 50 mg PO BID allergies 05/20/22 [History Last Taken 05/20/22 06:00] acetaminophen 325 mg tablet 650 mg (2 x 325 mg) PO Q4H PRN PRN Pain 1-10 Or Fever #0 tabs 06/07/23 [Rx Last Taken Unknown] oxycodone 5 mg tablet 5 mg PO Q4H PRN pain 5 days #15 tabs 06/07/23 [Rx Last Taken Unknown] cephalexin 500 mg capsule 500 mg PO Q6 #40 CAPSULES 07/12/23 [Rx Last Taken Unknown] Allergy/AdvReac Type Severity Reaction Status Date / Time No Known Allergies Allergy Verified 07/12/23 11:19 Social History Smoking Status: Never smoker ROS ROS ED Constitutional Constitutional ED: Denies chills or fever(s) Eyes Eyes: Denies discharge from eye(s) ENT ENT ED: Denies discharge from eye(s), rhinorrhea or sore throat Cardiovascular Cardiovascular: Denies chest pain Respiratory/Chest Respiratory/Chest: Denies cough or dyspnea Gastrointestinal Gastrointestinal: Denies abdominal pain, nausea or vomiting Musculoskeletal Musculoskeletal: Denies back pain or extremity pain Integumentary Reports other Details: Abdominal wound ; Denies Abrasions or rash Neurologic Neurologic: Denies headache(s) or weakness Psychiatric Psychiatric: Denies anxiety or depression Allergic/Immunologic Allergic/Immunologic ED: Denies lip swelling or urticaria EXAM Physical Exam Const Vital Signs: 07/12/23 11:20 Temperature 98.2 F Temperature Source Temporal Pulse Rate 87 Respiratory Rate 14 Blood Pressure 113/70 Blood Pressure Mean 84 Pulse Ox 98 Oxygen Delivery Method Room Air Positive well nourished and well developed General Appearance ED: well developed HEENT Reports moist mucous membranes Eyes EOMs intact bilaterally Chest Wall inspection of chest normal and palpation of chest normal Resp normal respiratory effort and clear to auscultation bilaterally Cardio regular rate and regular rhythm GI GI Narrative: Abdomen soft and nontender. Periumbilical port site has a small scab. No surrounding cellulitis. No palpable masses. No drainage from the site with palpation of her abdomen. Extremity normal to inspection Neuro oriented x3 and no sensory deficits noted Motor Exam: strength 5/5 throughout Psych mental status grossly normal MDM MDM MDM Narrative Medical decision making narrative: Bedside ultrasound was used to visualize the wound. There is a very small fluid collection visualized, but nothing large enough that requires I&D. Patient be treated with Keflex and will be cleansed and dressed. Return instructions provided. Discharge Plan Triage Chief Complaint: Wound ED Provider: Sera Lind Dx/Rx/DC Orders Clinical Impression: Surgical wound infection Instructions: ED Wound Infection after surgery Prescriptions: New cephalexin 500 mg capsule 500 mg PO Q6 Qty: 40 0RF No Action diphenhydramine HCl 50 mg Capsule 50 mg PO BID acetaminophen 325 mg Tablet 650 mg PO Q4H PRN PRN (Reason: Pain 1-10 Or Fever) Qty: 0 0RF oxycodone 5 mg tablet 5 mg PO Q4H PRN (Reason: pain) 5 Days Qty: 15 0RF Primary Care Provider: Care Physician,No Primary Referrals: Fito Hines MD [Med Staff - Active Staff] - As Needed Care Physician,No Primary [Primary Care Provider] - Disposition Disposition: Home, Self Care
[2023-07-12] MEDS: Cephalexin 250 MG Capsule 500 MG PO (11:52)
== END 2023-07-12 12:01 | disposition home or self-care (01) ==
LOC: ED 11:53
PROVIDERS: Emergency Provider Emergency Medicine; Visit Provider Emergency Medicine
DX: T81.49XA Infection following a procedure, other surgical site, initial encounter (principal); Z90.49 Acquired absence of other specified parts of digestive tract
CPT/HCPCS: 99282

== ENCOUNTER → 2025-07-21 | Outpatient (CLI) | payer MEDICAID, SELFPAY ==
[2025-07-21 17:36] LABS: Mucous, Urine 0 SEEN /hpf (<or=2+)
[2025-07-21 17:59] LABS: Color, Urine Yellow (Yellow); Glucose, Dipstick Normal (Normal); Ketone-Dipstick 50 mg/dl (Negative); Leukocyte Esterase-Dipstick 500 /ul (Negative); Nitrite-Dipstick Negative (Negative); Occult Blood-Urine 10 /ul (Negative); Protein-Dipstick 15 mg/dl (Negative); Specific Gravity, Urine 1.015 (1.002-1.030); Urine Bilirubin Dipstick Negative (Negative)
[2025-07-21 18:21] LABS: Red Blood Cells-Urine 0-5 SEEN /hpf (0-5)
[2025-07-21 18:22] LABS: Squamous Epithelial Cells - UA 10-25 SEEN /hpf (5-10)
== END | disposition home or self-care (01) ==
LOC: LABSPEC 17:34
PROVIDERS: Referring Provider Family Medicine; Visit Provider Family Medicine
DX: N89.8 Other specified noninflammatory disorders of vagina (principal)
CPT/HCPCS: 81001; 87086; 87088